=== PATIENT | female | born 1930 | race Hispanic/Latino ===

== ENCOUNTER 2016-12-01 16:10 | Inpatient (IN) | payer MEDICARE ==
[2016-12-01] MEDS ORDERED: D50W (25GM) IV PRN ×2 (16:48→18:41)
[2016-12-01] MEDS ORDERED: NOVOLOG SUB-Q SCH ×2 (16:51→21:00)
[2016-12-01] MEDS ORDERED: NACL 0.9% 1000 ML 1,000 ML IV SCH (17:00)
[2016-12-01 18:14] LABS: Alanine Aminotransferase 14 units/L (7-56); Albumin 4.2 g/dL (3.9-5); Alkaline Phosphatase 97 units/L (35-129); Anion Gap 18 mmol/L; BUN/Creatinine Ratio 31.42; Blood Urea Nitrogen 22 mg/dL (7-17); Calcium 10.7 mg/dL (8.4-10.2); Carbon Dioxide 24 mmol/L (22-30); Chloride 100.1 mmol/L (98-107); Glucose 222 mg/dL (65-100); Potassium 3.8 mmol/L (3.6-5.0); Sodium 138 mmol/L (137-145); Total Protein 8.4 g/dL (6.3-8.2)
[2016-12-01 18:22] LABS: Basophils % (Auto) 1.2 % (0.0-1.8); Eosinophils % (Auto) 9.4 % (0.0-4.3); Hematocrit 37.4 % (30.3-42.9); Hemoglobin 12.5 gm/dl (10.1-14.3); Mean Corpuscular HGB Conc 34 % (30-34); Mean Corpuscular Hemoglobin 29 pg (28-32); Mean Corpuscular Volume 88 fl (79-97); Platelet Count 252 K/mm3 (140-440); Red Blood Count 4.27 M/mm3 (3.65-5.03); Red Cell Distribution Width 13.5 % (13.2-15.2); White Blood Count 8.6 K/mm3 (4.5-11.0)
--- NOTE | 2016-12-01 19:27 | History and Physical Report ---
History of Present Illness Date of examination: 12/01/16 Date of admission: 12/01/16 18:40 Chief complaint: Seerely elevated Calcium level, constipation History of present illness: Pt is an 86 y/o lady with a history of DM, HTN, Hypercalcemia and osteoporosis on Alandronate, Ca+ with Vit D came in for a routine physical in my office on 11/29/16. Report of the lab studies showed Calcium level of 12.2. Total protein and Globulin were elevated with normal albumin level. Has constipation. Pt denies any chest pain shortness of breath, nausea vomiting or irrefgular hear beat. Pt was directly admitted for for evaluation and iv NS. Full H and P dictated and can be seen in the report section. Past History Past Medical History: hypertension, hyperlipidemia, other (osteoporosis) Past Surgical History: denies: No surgical history Social history: denies: smoking, alcohol abuse, prescription drug abuse, IV drug use Family history: denies: no significant family history Medications and Allergies Allergies Allergy/AdvReac Type Severity Reaction Status Date / Time codeine AdvReac Unknown Verified 12/01/16 16:19 lisinopril AdvReac Unknown Verified 12/01/16 16:19 Active Meds: Active Medications Dextrose (D50w (25gm)) 50 ml IV PRN PRN PRN Reason: Hypoglycemia Enoxaparin Sodium (Lovenox) 40 mg SUB-Q QDAY UYEN Sodium Chloride (Nacl 0.9% 1000 Ml) 1,000 mls @ 120 mls/hr IV DIRECT UYEN Insulin Aspart (Novolog) 0 units SUB-Q ACHS UYEN PRN Reason: Protocol Review of Systems Constitutional: weight loss, weight gain, no fever, no chills, no sweats Ears, nose, mouth and throat: other (hardness of heariong), no deferred, no ear pain, no ear discharge Cardiovascular: no chest pain, no orthopnea, no palpitations Respiratory: no cough, no cough with sputum, no excessive sputum, no hemoptysis Gastrointestinal: constipation, no abdominal pain, no nausea, no vomiting Integumentary: no rash, no pruritis Neurological: no head injury, no transient paralysis, no parathesias Psychiatric: no anxiety, no memory loss, no change in sleep habits, no sleep disturbances Endocrine: no cold intolerance, no heat intolerance, no polyphagia Exam - Constitutional Vitals: Temp Pulse Resp BP Pulse Ox 98.7 F 100 H 18 154/85 100 12/01/16 18:35 12/01/16 17:29 12/01/16 17:29 12/01/16 18:35 12/01/16 17:29 General appearance: Present: no acute distress, well-nourished - EENT Eyes: Present: PERRL ENT: hearing decreased - Neck Neck: Present: supple, normal ROM - Respiratory Respiratory effort: normal Respiratory: bilateral: CTA - Cardiovascular Heart Sounds: Present: S1 & S2. Absent: rub, click - Extremities Extremities: pulses symmetrical, No edema Peripheral Pulses: within normal limits - Abdominal General gastrointestinal: Present: soft, non-tender, non-distended, normal bowel sounds Female genitourinary: Present: normal - Integumentary Integumentary: Present: clear, warm, dry - Musculoskeletal Musculoskeletal: gait normal, strength equal bilaterally - Psychiatric Psychiatric: appropriate mood/affect, intact judgment & insight - Neurologic Neurologic: CNII-XII intact, moves all extremities Results - Labs CBC & Chem 7: 12/01/16 17:44 12/01/16 17:44 Labs: Abnormal lab results 12/01/16 12/01/16 Range/Units 17:44 17:44 [place] % (Auto) 12.7 H (0.0-7.3) % Eos % (Auto) 9.4 H (0.0-4.3) % [place] # 1.1 H (0.0-0.8) K/mm3 Eos # 0.8 H (0.0-0.4) K/mm3 BUN 22 H (7-17) mg/dL Glucose 222 H (65-100) mg/dL Calcium 10.7 H (8.4-10.2) mg/dL Total Protein 8.4 H (6.3-8.2) g/dL Assessment and Plan # Severe Hyperclacemia: PTH, Phosphorus, SPEP and UPEP, EKG, IV NS, trend Ca + level # Diabeted Mellitus Aic, SSI, Consistent carbohydrate diet # Hypertension Commenc home oral antihypertensive meds # H/o Ostoporosis Will hold Ca+ with Vit D and alendronate. # DVT PPx with lovenox and GI with protonix
[2016-12-01 19:56] LABS: Basophils % (Auto) 1.2 % (0.0-1.8); Eosinophils % (Auto) 8.8 % (0.0-4.3); Hematocrit 38.8 % (30.3-42.9); Hemoglobin 12.7 gm/dl (10.1-14.3); Mean Corpuscular HGB Conc 33 % (30-34); Mean Corpuscular Hemoglobin 29 pg (28-32); Mean Corpuscular Volume 88 fl (79-97); Platelet Count 251 K/mm3 (140-440); Red Blood Count 4.38 M/mm3 (3.65-5.03); Red Cell Distribution Width 13.3 % (13.2-15.2); White Blood Count 7.9 K/mm3 (4.5-11.0)
[2016-12-01] MEDS ORDERED: LOVENOX SUB-Q SCH ×2 (20:00→22:00)
[2016-12-01 20:07] LABS: Magnesium 1.6 mg/dL (1.7-2.3); Phosphorous 2.7 mg/dL (2.5-4.5)
[2016-12-01 20:10] LABS: Alanine Aminotransferase 14 units/L (7-56); Albumin 4.5 g/dL (3.9-5); Albumin/Globulin Ratio 1.2 %; Alkaline Phosphatase 98 units/L (35-129); Anion Gap 17 mmol/L; Blood Urea Nitrogen 21 mg/dL (7-17); Calcium 11.2 mg/dL (8.4-10.2); Carbon Dioxide 27 mmol/L (22-30); Chloride 99.1 mmol/L (98-107); Glucose 172 mg/dL (65-100); Potassium 4.3 mmol/L (3.6-5.0); Sodium 139 mmol/L (137-145); Total Protein 8.4 g/dL (6.3-8.2)
--- NOTE | 2016-12-01 20:28 | History and Physical Report ---
CHIEF COMPLAINT: 1. Severe hypercalcemia of 12.2. 2. Diabetes mellitus type 2. 3. Osteoporosis. HISTORY OF PRESENT ILLNESS: The patient is an 86-year-old lady who has a history of diabetes mellitus, osteoporosis, hyperlipidemia and hypertension, who came in about a week ago for a routine physical examination. Laboratory studies showed that the patient had a calcium level of 12.2. Denies any abdominal pain, no nausea, no vomiting. Denies any palpitations. The patient has a history of diabetes mellitus with an A1c of 6.4. Blood sugar today was 165. Of note, these are laboratory studies were done on 11/29/2016, also showed the patient in addition to have a calcium level of 12.3, total protein level of 8.7, hemoglobin level of 4.2, and albumin level of 4.5. Creatinine was 0.90 and BUN was 25. The patient was therefore directly admitted for IV normal saline because of the elevated calcium level. PAST MEDICAL HISTORY: Remarkable for hypertension, diabetes mellitus, hyperlipidemia, hypercalcemia, hardness of hearing. MEDICATIONS: Included alendronate 70 mg 1 weekly, amlodipine 10 mg daily, aspirin 81 mg daily, atorvastatin 10 mg daily, calcium with vitamin D 600 mg 1 p.o. t.i.d., glimepiride 4 mg b.i.d., hydrochlorothiazide 12.5 mg daily, losartan 50 mg daily, metformin 1000 mg b.i.d. ALLERGIES: TO CODEINE AND LISINOPRIL. LISINOPRIL CAUSES DRY COUGH. CODEINE CAUSES HER ALTERATION IN MENTAL STATUS. SOCIAL HISTORY: The patient lives alone. Denies any tobacco or alcohol use. No illicit drug use. FAMILY HISTORY: The patient denies any family history of hypercalcemia or multiple myeloma. REVIEW OF SYSTEMS: GENERAL: The patient is sitting quietly. HEENT: Normocephalic, atraumatic. EYES: No blurred vision. EARS: She has hearing deficit. NOSE: No rhinorrhea, no otorrhea. MOUTH: No postnasal drainage. NECK: No enlarged glands. HEART: Denies any chest pain. No orthopnea or paroxysmal nocturnal dyspnea. LUNGS: Denies any cough, no wheezing, no pleuritic chest pain. GASTROINTESTINAL: No abdominal pain, no nausea, no vomiting. No diarrhea. Denies any hematemesis or melena. GENITOURINARY: No urinary frequency or urgency. Denies any dysuria. SKIN: No rashes. No hyperpigmentation spots. ENDOCRINE: Denies any lid lag. No heat or cold intolerance. IMMUNOLOGICAL: Denies any multiple septic spots on the skin. HEMATOLOGICAL: No subcutaneous hemorrhage or petechia. LYMPHATIC: No generalized lymphadenopathy. PHYSICAL EXAMINATION: VITAL SIGNS: Blood pressure was 120/70, pulse was 80, respirations 14, weight is 109, height is 65 inches. HEENT: Normocephalic, atraumatic. Eyes: Pupils are equal, round and reactive to light. Extraocular muscles are intact. Nose: No enlarged turbinates. No septal deviation. THROAT: No postnasal drainage. EARS: She has a hearing deficit. HEART: Regular rate and rhythm, S1, S2. No rubs, murmurs, or gallop. CHEST: Clear to auscultation bilaterally. No wheezing, rales or rhonchi. ABDOMEN: Soft, nontender. Bowel sounds are present. EXTREMITIES: No edema, no cyanosis, no clubbing. NEUROLOGICAL: The patient is alert and oriented x 3. No focal sensory or motor deficit noted besides hardness of hearing. SKIN: No rashes. No hyperpigmentation spots ENDOCRINE: No lid lag. No goiter. No exophthalmos. HEMATOLOGICAL: No subcutaneous hemorrhages or petechia. IMMUNOLOGICAL: No multiple septic spots on the skin. LYMPHATIC: No generalized lymphadenopathy. MUSCULOSKELETAL: No joint pain, no joint swelling; however, has a kyphosis. LABORATORY DATA: Laboratory report on 11/29/2016 shows WBC was 7.2, hemoglobin was 13.1, hematocrit 41.0, platelets 286. Glucose 123. Sodium was 141, potassium level 4.7, chloride is 104, carbon dioxide 28, anion gap is 13, BUN is 25, creatinine 0.9, calcium is 12.2, total protein is 8.7, albumin is 4.5, globulin is 4.2, total bilirubin is 0.5, alkaline phosphatase 101, ALT is 21, 1, AST 31. Total cholesterol is 113, LDL is 55.4. HDL is 42. Triglycerides 78. TSH is 2.9, which is normal. ASSESSMENT: 1. Hypercalcemia with calcium level of 12.2. 2. Hyperproteinemia with total protein of 8.7, normal is 5.7 to 8.2. Globulin level of 4.2 with, normal is 1.8 to 4. 3. Diabetes mellitus type 2. 4. Osteoporosis. PLAN: We will admit the patient to medical floor. We will obtain UPEP and SPEP. PTH. Phosphorus level, magnesium levels will be ordered. TSH has been normal and therefore, we will not repeat that. Commenced the patient on normal saline at 125 mL/ hour. Repeat her BNP. The patient did not endorse any current weight loss. We will follow the results of the SPEP and UPEP for any evidence of multiple myeloma. The patient will be placed on consistent carbohydrate diet. Accu-Chek a.c. and bedtime. We will hold calcium with vitamin D for osteoporosis as well as alendronate. We will also hold her hydrochlorothiazide that may have been responsible for elevated calcium level. DVT prophylaxis is going to be with Lovenox and GI prophylaxis is going to be with Protonix. JOB# [id number] OO/NTS
[2016-12-01] MEDS: PROTONIX IV SCH (22:40)
[2016-12-01] MEDS: NACL 0.9% 1000 ML 1,000 ML IV SCH (22:41)
[2016-12-01] MEDS: NOVOLOG SUB-Q SCH (22:51)
[2016-12-01] MEDS: NORVASC PO SCH (22:57)
--- NOTE | 2016-12-02 00:27 | History and Physical Report ---
CHIEF COMPLAINT: 1. Elevated calcium level. 2. Diabetes mellitus type 2. HISTORY OF PRESENT ILLNESS: The patient is an 86-year-old lady who has a history of diabetes mellitus, hypertension, hardness of hearing, hyperlipidemia and hypercalcemia, came in for a physical examination about a week ago. Laboratory results came back with a calcium level of 12.2. Total protein was 8.7 and globulin was 4.2. The patient denies any chest pain. No shortness of breath. No orthopnea or paroxysmal nocturnal dyspnea. She had elevated calcium level about a year ago of 10.8. The patient had a history of osteoporosis for which she is on alendronate and calcium with vitamin D. Based on this elevated calcium level of 12.2, the patient was admitted directly to the hospital for IV normal saline and for a workup. The patient denies any diarrheas. No irregular heartbeats. Has a history of elevated TSH in the past. However, the patient has no history of constipation or low pulse rate. PAST MEDICAL HISTORY: Remarkable for diabetes mellitus type 2, hyperlipidemia, hypercalcemia, loss of hearing, osteoporosis and elevated TSH level. MEDICATIONS: Included: 1. Alendronate 70 mg 1 q. weekly. 2. Amlodipine 10 mg daily. 3. Aspirin 81 mg daily. 4. Atorvastatin 10 mg daily. 5. Calcium with vitamin D 600 mg 1 p.o. t.i.d. 6. Glimepiride 4 mg b.i.d. 7. Hydrochlorothiazide 12.5 mg daily. 8. Losartan 50 mg daily. 9. Metformin 1000 mg b.i.d. ALLERGIES: CODEINE. DICTATION ENDS HERE. JOB# [id number] OO/NTS
[2016-12-02 05:02] LABS: Alanine Aminotransferase 14 units/L (7-56); Albumin 3.7 g/dL (3.9-5); Albumin/Globulin Ratio 1.1 %; Alkaline Phosphatase 79 units/L (35-129); Anion Gap 16 mmol/L; Blood Urea Nitrogen 15 mg/dL (7-17); Calcium 9.9 mg/dL (8.4-10.2); Carbon Dioxide 25 mmol/L (22-30); Chloride 105.5 mmol/L (98-107); Glucose 141 mg/dL (65-100); Sodium 143 mmol/L (137-145); Total Protein 7.2 g/dL (6.3-8.2)
[2016-12-02 05:23] LABS: Potassium 3.4 mmol/L (3.6-5.0)
[2016-12-02] MEDS: NOVOLOG SUB-Q SCH ×4 (08:20→22:48)
[2016-12-02] MEDS: NORVASC PO SCH (09:28)
[2016-12-02] MEDS: CALTRATE PLUS PO SCH ×3 (09:28→20:29)
[2016-12-02] MEDS: PROTONIX IV SCH (09:29)
[2016-12-02] MEDS: HCTZ PO SCH (09:29)
--- NOTE | 2016-12-02 09:47 | Cat Scan Report ---
CT CHEST WITHOUT CONTRAST: 12/01/16 18:40:00 CLINICAL: Severe hypercalcemia and weight loss. TECHNIQUE: Volumetric acquisition and 1.25 mm scan reconstructions without contrast. FINDINGS: Bilateral apical pleural scarring and bilateral upper lobe calcified pleural plaques extending into the apices. A few tiny calcified granulomata and a few small noncalcified lung nodules in the upper lobes and the left lower lobe. The largest is in the left lower lobe and measures 4 mm. No pleural effusion. No hilar lymphadenopathy. However several bilateral calcified hilar lymph nodes and mediastinal lymph nodes. There also numerous noncalcified mediastinal lymph nodes. The largest is a left paratracheal lymph node measuring 1.6 x 1.27 m. No supraclavicular or axillary lymphadenopathy. Small bilateral axillary lymph nodes. The left thyroid is larger than the right and there is suggestion of a few tiny thyroid nodules and a three mm left thyroid calcification. The lungs are hyperexpanded and hyperlucent. Mild bilateral lower lobe scarring. Normal heart. Moderate calcification of the thoracic aorta. Normal trachea and esophagus. Bone windows demonstrate a moderate anterior wedge compression fracture of T5 appears to be chronic. IMPRESSION: 1. Mediastinal lymphadenopathy. 2. Old granulomatous disease with calcified mediastinal lymph nodes and a few tiny calcified lung granulomata. 3. Several small noncalcified lung nodules with largest measuring 4 mm in the left lower lobe. 4. Chronic T5 anterior wedge compression fracture.
--- NOTE | 2016-12-02 10:27 | Cat Scan Report ---
CT ABDOMEN AND PELVIS WITHOUT CONTRAST: 12/01/16 18:40:00 CLINICAL:Severe hypercalcemia and weight loss area TECHNIQUE: Volumetric acquisition and 1.25 millimeter scan reconstructions from the lung bases through the iliac crest. The study was performed without oral contrast. FINDINGS: Abdomen:The quality of the examination is degraded by motion. Normal liver and bile ducts. The gallbladder is partially contracted with no stones. Normal stomach, duodenum and spleen. The pancreas is small but otherwise normal. A few small celiac and jerry hepatis lymph nodes. The largest is a portacaval lymph node measuring 1.2 x 0.9 cm. Calcification of the abdominal aorta. The inferior vena cava is normal. No ascites and no pneumoperitoneum. The small bowel and colon are normal. There is a large volume of stool throughout the colon. The appendix is normal. Normal adrenal glands and kidneys. The renal systems and ureters are nondilated. Pelvis: Distended urinary bladder but otherwise normal urinary bladder. Normal small uterus. Ovaries are not identified. No adnexal mass or free fluid. Redundant sigmoid colon with mild diverticulosis. No signs of diverticulitis. IMPRESSION: 1. Mild diverticulosis but no diverticulitis. 2. Mildly prominent celiac and jerry hepatis lymph nodes. No lymphadenopathy.
[2016-12-02] MEDS: NACL 0.9% 1000 ML 1,000 ML IV SCH (11:03)
--- NOTE | 2016-12-02 12:58 | Progress Note ---
Assessment and Plan - Patient Problems (1) Hypercalcemia Current Visit: Yes Status: Acute Plan to address problem: Continue IV hydration with normal saline and monitor potassium level. Awaiting serum protein electrophoresis and urine electrophoresis, results still pending (2) Hypokalemia Current Visit: Yes Status: Acute Plan to address problem: We will replace potassium and continue to monitor (3) Type 2 diabetes mellitus Current Visit: Yes Status: Acute Qualifiers: Diabetes mellitus complication status: without complication Diabetes mellitus complication detail: D Diabetic retinopathy severity: D Proliferative retinopathy type: P Diabetes mellitus macular edema: D Diabetes mellitus senior care insulin use: without senior care use Laterality: L Chronic kidney disease stage: C Qualified Code(s): E11.9 - Type 2 diabetes mellitus without complications Plan to address problem: Place patient on sliding scale regular insulin for coverage of over 200. Patient previously stable on oral diabetes medication will restart both metformin and glimepiride at this time and continue to monitor blood for blood sugar over 200 (4) Degenerative joint disease involving multiple joints on both sides of body Current Visit: Yes Status: Acute Plan to address problem: Patient currently asymptomatic with continue to observe (5) Hypomagnesemia Current Visit: Yes Status: Acute Plan to address problem: Will order for replacement for magnesium and continue to monitor Subjective Date of service: 12/02/16 Principal diagnosis: hypercalcemia Interval history: Covering for Dr. Dr. Alexander. Patient seen and examined chart reviewed. Patient sitting up in bed denied any complaint at this time and inquiring about ongoing evaluation. Patient denied chest pain no shortness of breath no fever reported and denied any pain at this time. Objective - Exam Narrative Exam: GENERAL: Elderly female, sitting up in bed in no acute distress not pale no jaundice pupils are equal and reactive to light bilaterally HEENT: Normocephalic, pharynx is clear oral mucosal moist no oral lesions, NECK: [No JVD, no thyroid enlargement and no lymphadenopathy.] CHEST/LUNGS: [Good air exchange bilaterally, no wheeze, no rales and no rhonchi. ] [No chest wall tenderness, percussion is normal, symmetrical chest wall.] HEART/CARDIOVASCULAR: Tachycardia. Second heart sounds only does no audible murmur ABDOMEN: Abdomen is soft is nondistended, liver spleen and kidneys are not enlarged, no palpable masses, no surgical scars in the abdomen nontender to palpation bowel sounds active. No guarding or rebound tenderness SKIN: Skin is warm and dry, no skin rash noted, NEURO: Patient is awake alert oriented 3, speech is normal with no dysarthria, moving all 4 extremities, power is 5/5 in all the extremity EXTREMITIES: No pedal edema good peripheral pulses, no varicosities. Lower extremity joints showing degenerative changes with no joint effusion . - Constitutional Vitals: Vital Signs - 12hr 12/02/16 12/02/16 12/02/16 03:05 09:28 10:00 Pulse Rate 81 84 132 H Blood Pressure 158/70 - Labs CBC & Chem 7: 12/01/16 19:32 12/02/16 04:12 Labs: Abnormal lab results 12/01/16 12/01/16 12/01/16 Range/Units 17:44 17:44 19:32 [place] % (Auto) 12.7 H 12.2 H (0.0-7.3) % Eos % (Auto) 9.4 H 8.8 H (0.0-4.3) % [place] # 1.1 H 1.0 H (0.0-0.8) K/mm3 Eos # 0.8 H 0.7 H (0.0-0.4) K/mm3 Potassium (3.6-5.0) mmol/L BUN 22 H (7-17) mg/dL Creatinine (0.7-1.2) mg/dL Glucose 222 H (65-100) mg/dL POC Glucose (70-105) Calcium 10.7 H (8.4-10.2) mg/dL Magnesium (1.7-2.3) mg/dL Total Protein 8.4 H (6.3-8.2) g/dL Albumin (3.9-5) g/dL 12/01/16 12/01/16 12/01/16 Range/Units 19:32 19:32 19:44 [place] % (Auto) (0.0-7.3) % Eos % (Auto) (0.0-4.3) % [place] # (0.0-0.8) K/mm3 Eos # (0.0-0.4) K/mm3 Potassium (3.6-5.0) mmol/L BUN 21 H (7-17) mg/dL Creatinine 0.6 L (0.7-1.2) mg/dL Glucose 172 H (65-100) mg/dL POC Glucose 164 H (70-105) Calcium 11.2 H (8.4-10.2) mg/dL Magnesium 1.60 L (1.7-2.3) mg/dL Total Protein 8.4 H (6.3-8.2) g/dL Albumin (3.9-5) g/dL 12/01/16 12/02/16 12/02/16 Range/Units 21:45 04:12 08:14 [place] % (Auto) (0.0-7.3) % Eos % (Auto) (0.0-4.3) % [place] # (0.0-0.8) K/mm3 Eos # (0.0-0.4) K/mm3 Potassium 3.4 L D (3.6-5.0) mmol/L BUN (7-17) mg/dL Creatinine 0.5 L (0.7-1.2) mg/dL Glucose 141 H (65-100) mg/dL POC Glucose 147 H 148 H (70-105) Calcium (8.4-10.2) mg/dL Magnesium (1.7-2.3) mg/dL Total Protein (6.3-8.2) g/dL Albumin 3.7 L (3.9-5) g/dL 12/02/16 Range/Units 12:08 [place] % (Auto) (0.0-7.3) % Eos % (Auto) (0.0-4.3) % [place] # (0.0-0.8) K/mm3 Eos # (0.0-0.4) K/mm3 Potassium (3.6-5.0) mmol/L BUN (7-17) mg/dL Creatinine (0.7-1.2) mg/dL Glucose (65-100) mg/dL POC Glucose 243 H (70-105) Calcium (8.4-10.2) mg/dL Magnesium (1.7-2.3) mg/dL Total Protein (6.3-8.2) g/dL Albumin (3.9-5) g/dL
[2016-12-02] MEDS ORDERED: K-DUR PO ONE (14:00)
[2016-12-02] MEDS ORDERED: HCTZ PO SCH (14:00)
[2016-12-02] MEDS: MAG-OX PO SCH (14:55)
[2016-12-02] MEDS: BABY ASPIRIN PO SCH (14:55)
[2016-12-02] MEDS ORDERED: GLIMEPIRIDE 5 MG PO SCH (22:00)
[2016-12-02] MEDS: AMARYL PO SCH (22:19)
[2016-12-02] MEDS: GLUCOPHAGE PO SCH (22:20)
[2016-12-02] MEDS: LOVENOX SUB-Q SCH (22:20)
[2016-12-03 05:00] LABS: Anion Gap 19 mmol/L; BUN/Creatinine Ratio 31.66; Blood Urea Nitrogen 19 mg/dL (7-17); Carbon Dioxide 22 mmol/L (22-30); Chloride 103.9 mmol/L (98-107); Glucose 114 mg/dL (65-100); Sodium 141 mmol/L (137-145)
[2016-12-03] MEDS: NACL 0.9% 1000 ML 1,000 ML IV SCH ×2 (07:08→16:29)
[2016-12-03] MEDS: NOVOLOG SUB-Q SCH ×3 (08:30→16:26)
[2016-12-03] MEDS: CALTRATE PLUS PO SCH ×3 (08:45→21:15)
[2016-12-03] MEDS: NORVASC PO SCH (09:34)
[2016-12-03] MEDS: AMARYL PO SCH ×2 (09:34→21:14)
[2016-12-03] MEDS: PROTONIX PO SCH (09:34)
[2016-12-03] MEDS: MAG-OX PO SCH (09:34)
[2016-12-03] MEDS: BABY ASPIRIN PO SCH (09:34)
[2016-12-03] MEDS: HCTZ PO SCH (09:35)
[2016-12-03] MEDS: GLUCOPHAGE PO SCH ×2 (09:36→21:14)
[2016-12-03] MEDS ORDERED: NON-FORMULARY (Amlodipine 10 MG) PO SCH (10:00)
[2016-12-03] MEDS ORDERED: NON-FORMULARY (Atorvastatin 10 MG) PO SCH (10:00)
--- NOTE | 2016-12-03 11:07 | Progress Note ---
Assessment and Plan - Patient Problems (1) Hypercalcemia Current Visit: Yes Status: Acute Plan to address problem: Continue IV hydration with normal saline and monitor potassium level. Awaiting serum protein electrophoresis and urine electrophoresis, results still pending (2) Hypokalemia Current Visit: Yes Status: Acute Plan to address problem: We will replace potassium and continue to monitor (3) Type 2 diabetes mellitus Current Visit: Yes Status: Acute Qualifiers: Diabetes mellitus complication status: without complication Diabetes mellitus complication detail: D Diabetic retinopathy severity: D Proliferative retinopathy type: P Diabetes mellitus macular edema: D Diabetes mellitus half-way insulin use: without intermodal dispatcher use Laterality: L Chronic kidney disease stage: C Qualified Code(s): E11.9 - Type 2 diabetes mellitus without complications Plan to address problem: Place patient on sliding scale regular insulin for coverage of over 200. Patient previously stable on oral diabetes medication will restart both metformin and glimepiride at this time and continue to monitor blood for blood sugar over 200 (4) Degenerative joint disease involving multiple joints on both sides of body Current Visit: Yes Status: Acute Plan to address problem: Patient currently asymptomatic with continue to observe (5) Hypomagnesemia Current Visit: Yes Status: Acute Plan to address problem: Will order for replacement for magnesium and continue to monitor Subjective Date of service: 12/03/16 Principal diagnosis: hypercalcemia Interval history: Covering Dr. Dr. Alexander. Patient seen and examined chart reviewed. Patient denied any new complaints no chest pain or shortness of breath and no fever reported. Vitals stable Objective - Exam Narrative Exam: GENERAL: Elderly female, sitting up in bed in no acute distress not pale no jaundice pupils are equal and reactive to light bilaterally HEENT: Normocephalic, pharynx is clear oral mucosal moist no oral lesions, NECK: [No JVD, no thyroid enlargement and no lymphadenopathy.] CHEST/LUNGS: [Good air exchange bilaterally, no wheeze, no rales and no rhonchi. ] [No chest wall tenderness, percussion is normal, symmetrical chest wall.] HEART/CARDIOVASCULAR: Tachycardia. Second heart sounds only does no audible murmur ABDOMEN: Abdomen is soft is nondistended, liver spleen and kidneys are not enlarged, no palpable masses, no surgical scars in the abdomen nontender to palpation bowel sounds active. No guarding or rebound tenderness SKIN: Skin is warm and dry, no skin rash noted, NEURO: Patient is awake alert oriented 3, speech is normal with no dysarthria, moving all 4 extremities, power is 5/5 in all the extremity EXTREMITIES: No pedal edema good peripheral pulses, no varicosities. Lower extremity joints showing degenerative changes with no joint effusion . - Constitutional Vitals: Vital Signs - 12hr 12/02/16 12/03/16 12/03/16 23:50 06:40 08:00 Temperature 97.2 F L 98.2 F 98.1 F Pulse Rate Pulse Rate [ 95 H 110 H 88 From Monitor] Respiratory 18 18 16 Rate Blood Pressure Blood Pressure 156/71 103/70 135/72 [Right Arm] O2 Sat by Pulse 95 Oximetry 12/03/16 09:34 Temperature Pulse Rate 88 Pulse Rate [ From Monitor] Respiratory Rate Blood Pressure 135/72 Blood Pressure [Right Arm] O2 Sat by Pulse Oximetry - Labs CBC & Chem 7: 12/01/16 19:32 12/03/16 04:11 Labs: Abnormal lab results 12/02/16 12/02/16 12/02/16 Range/Units 08:14 12:08 16:07 BUN (7-17) mg/dL Creatinine (0.7-1.2) mg/dL Glucose (65-100) mg/dL POC Glucose 148 H 243 H 158 H (70-105) 12/02/16 12/03/16 12/03/16 Range/Units 22:05 04:11 07:24 BUN 19 H (7-17) mg/dL Creatinine 0.6 L (0.7-1.2) mg/dL Glucose 114 H (65-100) mg/dL POC Glucose 190 H 174 H (70-105)
[2016-12-03] MEDS: LOVENOX SUB-Q SCH (21:14)
[2016-12-04] MEDS: NOVOLOG SUB-Q SCH ×3 (00:01→11:25)
[2016-12-04] MEDS: NACL 0.9% 1000 ML 1,000 ML IV SCH ×2 (00:06→09:37)
[2016-12-04] MEDS: BABY ASPIRIN PO SCH (09:15)
[2016-12-04] MEDS: CALTRATE PLUS PO SCH (09:15)
[2016-12-04] MEDS: MAG-OX PO SCH (09:15)
[2016-12-04] MEDS: PROTONIX PO SCH (09:16)
[2016-12-04] MEDS: NORVASC PO SCH (09:16)
[2016-12-04] MEDS: AMARYL PO SCH (09:16)
[2016-12-04] MEDS: HCTZ PO SCH (09:17)
[2016-12-04 09:18] VITALS: BP 149/73
[2016-12-04] MEDS: GLUCOPHAGE PO SCH (09:19)
--- NOTE | 2016-12-04 09:30 | Discharge Summary ---
Providers - Providers Date of Admission: 12/01/16 18:40 Date of discharge: 12/04/16 Attending physician: NOMAN NARVAEZ none Primary care physician: NOMAN NARVAEZ Hospitalization Reason for admission: hyperkalemia, constipation Pertinent studies: CT scan of the abdomen and pelvis was unremarkable for any acute event Procedures: Done Hospital course: Patient is an 86-year-old lady was a history or hypertension, diabetes mellitus , hypercalcemia, had visited my office for routine physical. Blood studies were done. Calcium level returned as 12.2. Patient has a history of osteoporosis for which she is on cars with vitamin D. Was admitted on commenced on normal saline and Lasix. CT scan of the chest abdomen and pelvis showed mediastinal lymphadenopathies. UPEP and SPEP were ordered. Results pending. Hypercalcemia improved to normal. Alendronate calcium with vitamin D were discontinued. Constipation improved. Patient is therefore been discharged today to follow primary care physician as well as to follow up with result of parathyroid paraprotein. Disposition: DISCHARGED TO HOME OR SELFCARE Core Measure Documentation - Palliative Care Palliative Care/ Comfort Measures: Not Applicable - Core Measures Any of the following diagnoses?: none Exam - Constitutional Vitals: Temp Pulse Resp BP Pulse Ox 98.6 F 98 H 20 149/73 95 12/04/16 04:00 12/04/16 09:16 12/04/16 04:00 12/04/16 09:16 12/03/16 08:00 General appearance: Present: no acute distress, well-nourished - EENT Eyes: Present: PERRL ENT: hearing intact, clear oral mucosa - Neck Neck: Present: supple, normal ROM - Respiratory Respiratory effort: normal Respiratory: bilateral: CTA - Cardiovascular Heart Sounds: Present: S1 & S2. Absent: rub, click - Extremities Extremities: pulses symmetrical, No edema Peripheral Pulses: within normal limits - Abdominal General gastrointestinal: Present: soft, non-tender, non-distended, normal bowel sounds - Integumentary Integumentary: Present: clear, warm, dry - Musculoskeletal Musculoskeletal: gait normal, strength equal bilaterally - Psychiatric Psychiatric: appropriate mood/affect, intact judgment & insight - Neurologic Neurologic: CNII-XII intact, moves all extremities Plan Activity: no driving until cleared by PCP, fall precautions Diet: diabetic Follow up with: NOMAN NARVAEZ MD [Primary Care Provider] - 7 Days Prescriptions: amLODIPine [Norvasc] 10 mg PO QDAY #30 tablet Aspirin BABY CHEW TAB 81 mg PO QDAY #30 AtorvaSTATin [Lipitor] 10 mg PO QHS #30 tablet Glimepiride [Amaryl] 4 mg PO Q12HR #60 tablet Metformin HCl 1,000 mg PO Q12HR #60
--- NOTE | 2016-12-04 13:41 | Admit Criteria Form ---
Admission Criteria Documentation: GENERAL ADMISSION CRITERIA (Place 'X' for any and all applicable criteria): Admission is indicated for ANY ONE of the following: [ ]I. Hemodynamic instability as indicated by ANY ONE of the following(1)(2) (3)(4)(5): [ ]a) Vital sign abnormality not readily corrected by appropriate treatment within 12 to 24 hours indicated by ANY ONE of the following: [ ]i) Hypotension [ ]ii) Symptomatic Tachycardia unresponsive to treatment (eg , analgesia, fluids, sedation as indicated) [ ]iii) Orthostatic vital sign changes unresponsive to treatment (eg, fluids) [ ]b) Vital sign abnormality that is severe indicated by ANY ONE of the following: [ ]i) Inadequate perfusion indicated by ANY ONE of the following: [ ]1) Lactic acidosis (greater than 2 mmol/L) [ ]2) New abnormal capillary refill (greater than 3 seconds) [ ]3) Other metabolic acidosis (arterial pH less than 7.35) not otherwise explained [ ]4) Reduced urine output [ ]5) Altered mental status [ ]6) Myocardial Ischemia [ ]v) Mean arterial pressure[A] less than 60 mm Hg [ ]vi) Mean arterial pressure[A] less than 70 mm Hg after 30 minutes of appropriate treatment (eg, fluid resuscitation) [ ]vii) IV inotropic or vasopressor medication required to maintain adequate blood pressure or perfusion [ ]viii) Sustained heart rate greater than 120 beats per minute in adult or child 6 years or older[B]] [ ]II. Hypertension requiring inpatient treatment as indicated by ANY ONE of the following(6)(7)(8): [ ]a) SBP greater than 220 mm Hg or DBP greater than 120 mm Hg despite treatment [ ]b) SBP greater than 140 mm Hg or DBP greater than 100 mm Hg with evidence of acute end organ damage as indicated by ANY ONE of the following: [ ]i) Encephalopathy [ ]ii) Acute renal failure as indicated by new onset of ANY ONE of the following(9)(10)(11)(12)(13): [ ]1) A 3-fold rise in serum creatinine from baseline [ ]2) Serum creatinine greater than 4 mg/dL ( 354 micromoles/L) with acute rise greater than 0.5 mg/dL (44.2 micromoles/L) [ ]3) Reduction of more than 75% in estimated glomerular filtration rate from baseline [ ]4) Estimated glomerular filtration rate less than 35 mL/min/1.73m2 (0.59 mL/sec/1.73m2) in child up to 18 years of age [ ]5) Cessation of urine output indicated by ALL of the following: [ ]A. Adequate volume status [ ]B. Inadequate urine output as indicated by ANY ONE of the following: [ ]a. Urine output less than 0.3 mL/kg/hr for 24 hours [ ]b. Anuria (urine output less than 0.1 mL/kg/hr) for 12 hours [ ]iii) Aortic dissection [ ]iv) Myocardial ischemia [ ]v) Left ventricular heart failure [ ]vi) Retinal hemorrhage [ ]vii) Other significant finding [ ]c) Hypertension in child requiring inpatient treatment as indicated by ALL of the following(14)(15)(16): [ ]i) Outpatient treatment not effective, not available, or not appropriate [ ]ii) SBP or DBP greater than 95th percentile for age [ ]iii) Evidence of acute end organ damage as indicated by ANY ONE of the following: [ ]1) Altered mental status [ ]2) Acute renal failure as indicated by new onset of ANY ONE of the following(9)(10)(11)(12)(13): [ ]A. A 3-fold rise in serum creatinine from baseline [ ]B. Serum creatinine greater than 4 mg/dL (354 micromoles/L) with acute rise greater than 0.5 mg/dL (44.2 micromoles/L) [ ]C. Reduction of more than 75% in estimated glomerular filtration rate from baseline [ ]D. Estimated glomerular filtration rate less than 35 mL/min/1.73m2 (0.59 mL/sec/1.73m2)in child up to 18 years of age [ ]E. Cessation of urine output indicated by ALL of the following: [ ]a. Adequate volume status [ ]b. Inadequate urine output as indicated by ANY ONE of the following: [ ]1) Urine output less than 0.3 mL/kg/hr for 24 hours [ ]2) Anuria (urine output less than 0.1 mL/kg/hr) for 12 hours [ ]3) Severe headache [ ]4) Visual disturbance [ ]5) Retinal hemorrhage [ ]6) Other significant finding [ ]III. Acute cardiac or peripheral ischemia as indicated by ANY ONE of the following: [ ]a) Acute coronary syndrome(17)(18) [ ]b) Acute peripheral ischemia (eg, pulseless, cool, mottled, or cyanotic extremity)(19) [ ]IV. Cardiac arrhythmias or findings of immediate concern indicated by ANY ONE of the following(20)(21): [ ]a) Heart rhythms that are inherently dangerous or unstable indicated by ANY ONE of the following(22)(23)(24): [ ]i) Resuscitated ventricular fibrillation or cardiac arrest [ ]ii) Ventricular escape rhythm [ ]iii) Sustained ventricular tachycardia (30 seconds or more of ventricular rhythm at greater than 100 beats per minute) [ ]iv) Nonsustained ventricular tachycardia and ANY ONE of the following: [ ]1) Suspected cardiac ischemia as cause or consequence of ventricular tachycardia [ ]2) In setting of acute myocarditis [ ]b) Unstable cardiac conduction defects indicated by ANY ONE of the following(24)(25)(26): [ ]i) Type II second-degree atrioventricular block [ ]ii) Third-degree atrioventricular block [ ]iii) New-onset left bundle branch block with suspected myocardial ischemia [ ]c) Any heart rhythm and ANY ONE of the following(22)(23)(27)(28)( 29): [ ] i) Continuous long-term ECG monitoring needed (eg, initiation of drug requiring monitoring for more than 24 hours) [ ] ii) Patient has automatic implanted cardioverter defibrillator that is repeatedly firing, malfunctioning, or in need of immediate adjustment of settings beyond the scope of ambulatory or observation care. [ ]d) Heart rhythms of concern due to ANY ONE of the following: [ ]i) Hypotension [ ]ii) Respiratory distress [ ]iii) Association with other significant symptoms (eg, bradycardia with syncope or ongoing dizziness, supraventricular tachycardia with chest pain) (27)(28) (30) [ ] V. Severe heart failure as indicated by ANY ONE of the following ( 31)(32): [ ]a) Respiratory distress [ ]b) Hypotension [ ]c) Anasarca (refractory to outpatient therapy) [ ]d) Cardiac arrhythmias of immediate concern [ ]e) Myocardial ischemia [ ]. Respiratory abnormalities, including ANY ONE of the following(33)(34) (35)(36): [ ]a) Respiratory rate greater than 30 breaths per minute unresponsive to treatment [A] [ ]b) New saturation of arterial oxygen less than 90% [ ]c) New partial pressure of carbon dioxide greater than 44 mm Hg ( 5.9 kPa) [ ]d) Supplemental oxygen or respiratory treatments needed that are new or not performable at other levels of care [ ]e) New-onset cyanosis [ ]f) Inability to protect airway [ ]g) Chronic lung disease with severe deterioration (not responsive to emergency and observation care treatment as appropriate) as indicated by ANY ONE of the following(34)(36 ): [ ]i) SaO2 5% below baseline in patient with chronic hypoxemia [ ]ii) New requirement for supplemental oxygen to keep SaO2 at baseline or acceptable level [ ]iii) Required supplemental oxygen performable only in acute inpatient setting [ ]iv) Severe airflow or ventilation abnormalities [ ]v) Previously mobile patient unable to walk between rooms [ ]vi Inability to eat or sleep due to dyspnea [ ]vii) Rapid rate of exacerbation onset [ ]viii) Altered mental status ]VII. Severe airflow or ventilation abnormalities (not responsive to emergency and observation care treatment as appropriate) as indicated by ANY ONE of the following(33)(34)(35)(37): [ ]a) PCO2 greater than 42 mm Hg (5.6 kPa) and pH less than 7.35 (new ) [ ]b) Documented PCO2 increased more than 5 mm Hg (0.7 kPa) from disease baseline [ ]c) Airflow measurements [B] less than 60% of previous best or predicted (eg, peak expiratory flow rate less than 300 L/minute) despite intensive emergent treatment [C] [ ]d) Required respiratory treatments that are performable only in acute inpatient setting [ ]VIII. Impending or actual respiratory arrest ( Also use Respiratory Failure GRG for severe respiratory disease and long-term mechanical ventilation patients) [ ]IX. Neurologic abnormalities, including ANY ONE of the following: [ ]a) New findings that suggest ANY ONE of the following: [ ]i) [employer] infection(38) [ ]ii) Cerebral bleeding, ischemia, or vasospasm(39)(40) [ ]iii) Increased intracranial pressure, hydrocephalus, or cerebral edema(41)(42)(43) [ ]iv) Spinal cord injury(44) [ ]b) Uncontrolled seizures(45) [ ]c) New-onset coma (eg, Bladen coma scale score less than 9) or unexplained abnormal mental status (eg, Bladen coma scale score less than 14) [D](41)(46)(47) [ ]X. New-onset severe neurologic findings requiring inpatient care; examples include(42)(48)(49): [ ]a) Papilledema [ ]b) Cerebral edema [ ]c) Mass effect on CT scan [ ]XI. Suspected acute intra-abdominal process with peritoneal signs, abdominal mass, or similar findings (50)(51)(52) [ ]XII. Severe physiologic disorder remaining after emergency or observation level care (as appropriate) as indicated by ANY ONE of the following (53): [ ]a) Significant dehydration [ ]b) Diabetic ketoacidosis [ ]c) Hyperglycemic hyperosmolar state (eg, osmolality greater than 320 mOsm/kg (mmol/kg) [ ]d) Hypoglycemia [ ]e) Other (new) acid-base disorder with pH less than 7.35 or greater than 7.5(54) [ ]f) Thyroid storm (55) [ ]g) Myxedema coma (55) [ ]XIII. Abdominal abnormalities with ANY ONE of the following(56)(57): [ ]a) Absent bowel sounds with complete ileus [ ]b) Signs of intestinal obstruction or peritonitis [E] [ ]c) Nausea and vomiting that cannot be controlled with outpatient or observation care [ ]XIV. Acute renal failure as indicated by new onset of ANY ONE of the following(9)(10)(11)(12)(13): [ ]a) A 3-fold rise in serum creatinine from baseline [ ]b) Serum creatinine greater than 4 mg/dL (354 micromoles/L) with acute rise greater than 0.5 mg/dL (44.2 micromoles/L) [ ]c) Reduction of more than 75% in estimated glomerular filtration rate from baseline [ ]d) Estimated glomerular filtration rate less than 35 mL/min/ 1.73m2 (0.59 mL/sec/1.73m2) in child up to 18 years of age [ ]e) Cessation of urine output indicated by ALL of the following: [ ]i) Adequate volume status [ ]ii) Inadequate urine output as indicated by ANY ONE of the following: [ ]1) Urine output less than 0.3 mL/kg/hr for 24 hours [ ]2) Anuria (urine output less than 0.1 mL/kg/hr) for 12 hours [ ]XV. Significant uremic complications as indicated by ANY ONE of the following(58)(59)(60): [ ]a) Outpatient therapy is ineffective or not feasible for ANY ONE of the following: [ ]i) Severe heart failure [ ]ii) Severehypertension [ ]iii) Pleural effusion [ ]iv) Pericarditis or pericardial effusion [ ]b) Cardiac arrhythmias of immediate concern [ ]c) Intractable nausea or vomiting [ ]d) Recurrent seizures [ ]e) Encephalopathy [ ]f) Bleeding abnormalities (eg, platelet dysfunction) with active (eg, gastrointestinal) bleeding [ ]g) Dialysis indicated before long-term access or ambulatory arrangements can be made [ ]h) Significant metabolic or electrolyte abnormalities (eg, severe acidosis or hyperkalemia) [ ]XVI. High fever or other high-risk infection situation as indicated by ANY ONE of the following(61)(62)(63)(64): [ ]a) Outpatient and observation care antimicrobial treatment unavailable, not effective, or not appropriate [ ]b) Documented bacteremia [ ]c) Temperature greater than 40.5 degrees C (104.9 degrees F) ( oral) [ ]d) Temperature greater than 39.5 degrees C (103.1 degrees F) ( oral) or less than 36 degrees C (96.8 degrees F) (rectal) that does not respond to e treatment and observation care [ ] XVII. Temperature less than 95 degrees F (35 degrees C)(rectal)(65) [ ] XVIII. Severe nutritional abnormalities as indicated by ALL of the following (66)(67): [ ]a) Inability to tolerate or establish sufficient oral or other enteral nutrition in outpatient setting [ ]b) Parenteral nutrition regimen need that must be implemented on inpatient basis [ ] XIX. Severe electrolyte abnormalities indicated by ALL of the following(68) (69)(70): [ ]a) Electrolytes and associated findings are not as expected for patient baseline or acceptable treatment effects. [ ]b) Severe abnormalities indicated by ANY ONE of the following: [ ]i) Sodium less than 130 mEq/L (mmol/L) (new) [ ]ii)Sodium less than 135 mEq/L (mmol/L) with ANY ONE of the following: [ ]1) Uncorrectable (to near normal or chronic baseline) after trial of outpatient and emergency treatment [ ]2) Altered mental status [ ]3) Seizures [ ]4) Severe medical etiology requiring inpatient management (eg, heart failure, hypovolemia) [ ]iii) Sodium greater than 155 mEq/L (mmol/L) [ ]iv) Sodium greater than 150 mEq/L (mmol/L) with ANY ONE of the following: [ ]1) Uncorrectable (to near normal or chronic baseline) with outpatient and emergency treatment [ ]2) Altered mental status [ ]3) Seizures [ ]4) Severe medical etiology (eg, hypovolemia, diabetes insipidus) [ ]v) Potassium less than 2.5 mEq/L (mmol/L) despite outpatient and emergency treatment [ ]vi) Potassium less than 3 mEq/L (mmol/L) with ANY ONE of the following: [ ]1) Weakness [ ]2) Cardiac abnormality (eg, arrhythmia, conduction disturbance) [ ]3) Cardiac ischemia [ ]4) Ileus [ ]5) Ongoing medical cause requiring inpatient management (eg, acute renal wasting or SIADH) [ ]6) Other severe symptoms [ ]vii) Potassium greater than 6.5 mEq/L (mmol/L) [ ]viii) Potassium greater than 5 mEq/L (mmol/L) with ANY ONE of the following: [ ]1) Uncorrectable (to near normal or chronic baseline) with outpatient and emergency treatment [ ]2) Severe ECG findings [F] [ ]3) Acute worsening of renal failure (creatinine greater than 2.5 mg/dL (221 micromoles/L) or significant elevation for age and size) [ ]4) Severe weakness [ ]5) Severe medical etiology (eg, hemolysis, infection, drug overdose) [ ]ix) Calcium less than 7 mg/dL (1.75 mmol/L) despite outpatient and emergency treatment (72) [ ]x) Calcium less than 8 mg/dL (2 mmol/L) with significant symptoms or findings; examples include(72): [ ]1) Altered mental status [ ]2) Muscle spasms [ ]3) Seizures [ ]4) Breathing difficulty [ ]5) Cardiac abnormality (eg, arrhythmia or conduction disturbance) [ ]xi) Calcium greater than 14 mg/dL (3.5 mmol/L)(72) [X]xii) Calcium greater than 12 mg/dL (3 mmol/L) with ANY ONE of the following(72): [X]1) Uncorrectable (to near normal or chronic baseline) with outpatient and emergency treatment [ ]2) Significant dehydration or hypovolemia as indicated by ALL of the following(70)(73)(74): [ ]A. Not resolved with initial treatments [ ]B. Clinically significant dehydration as indicated by ANY ONE of the following: [ ]a. Vomiting refractory to outpatient treatment (ie, precluding oral rehydration) [ ]b. Inability to drink [ ]c. Hypernatremia or other electrolyte abnormality unable to be corrected with outpatient and emergency treatment [ ]d. Failure to remain hydrated with outpatient therapy [ ]e. Reduced urine output [ ]f. Hypotension [ ]g. Serious cause for dehydration requiring acute hospitalization (eg, bowel obstruction, increased intracranial pressure, infectious cause) [ ]h. Child with ANY ONE of the following(75): [ ]1) Severe abdominal tenderness [ ]2) Adequate care not available at home [ ]3) Severe dehydration ( greater than 9% loss of body weight) [ ]4) Significant symptoms or findings; examples include: [ ]A. Altered mental status [ ]B. Cardiac abnormality (eg, arrhythmia, conduction disturbance) [ ]C. Malignant etiology requiring inpatient treatment [ ]xiii) Phosphorus less than 1 mg/dL (0.32 mmol/L) [ ]xiv) Phosphorus less than 1.5 mg/dL (0.48 mmol/L) with ANY ONE of the following: [ ]1) Patient unresponsive to outpatient and emergency treatment [ ]2) Significant symptoms or findings; examples include: [ ]A. Weakness [ ]B. Altered mental status [ ]C. Breathing difficulty [ ]D. Seizures [ ]E. Rhabdomyolysis [ ]xv) Phosphorus greater than 10 mg/dL (3.2 mmol/L) [ ]xvi) Phosphorus greater than 4.5 mg/dL (1.45 mmol/L) (new) with ANY ONE of the following: [ ]1) Severe medical etiology (eg, crush injury, acute renal failure) [ ]2) Associated hypocalcemia with significant findings; examples include: [ ]A. Neurologic symptoms [ ]B. Altered mental status [ ]C. Muscle spasms [ ]D. Seizures [ ]E. Breathing difficulty [ ]F. Cardiac abnormality (eg, arrhythmia, conduction disturbance) [ ]xvii) Magnesium less than 1 mg/dL (0.41 mmol/L) [ ]xviii) Magnesium less than 1.5 mg/dL (0.62 mmol/L) with ANY ONE of the following: [ ]1) Patient unresponsive to outpatient and emergency treatment [ ]2) Associated hypocalcemia with significant findings; examples include: [ ]A. Altered mental status [ ]B. Muscle spasms [ ]C. Seizures [ ]D. Breathing difficulty [ ]E. Cardiac abnormality (eg, arrhythmia , conduction disturbance) [ ]3) Associated hypokalemia (potassium less than 3 mEq/L (mmol/L)) with risk of arrhythmia [ ]xix) Magnesium greater than 4 mEq/L (2 mmol/L) [ ]xx) Magnesium greater than 2.5 mEq/L (1.25 mmol/L) with significant symptoms or findings; examples include: [ ]1) Weakness [ ]2) Altered mental status [ ]3) Cardiac abnormality (eg, arrhythmia, conduction disturbance) [ ]4) Breathing difficulty [ ]5) Severe medical etiology (eg, renal failure, hypovolemia) [ ]xxi) Uric acid greater than 20 mg/dL (1190 micromoles/L)(76) [ ]xxii) Uric acid greater than 8 mg/dL (476 micromoles/L) with significant symptoms or findings of tumor lysis syndrome; examples include(76): [ ]1) Creatinine greater than 1.5 times upper limit of normal [ ]2) Cardiac abnormality (eg, arrhythmia, conduction disturbance) [ ]3) Seizure [ ]XX. Acute blood loss causing significant abnormality as indicated by ANY ONE of the following(77)(78): [ ]a) Hemoglobin less than 10 g/dL (100 g/L) (not baseline) [ ]b) Hematocrit less than 30% (0.30) (not baseline) [ ]c) Repeat hematocrit decreased more than 2% (0.02) [ ]d) Uncontrolled bleeding [ ]XXI. Severe anemia indicated by ANY ONE of the following(78)(79): [ ]a) Altered mental status [ ]b) Chest pain [ ]c) Exertional dyspnea [ ]d) Syncope [ ]e) Other findings suggesting inadequate perfusion [ ]f) Treatment with transfusion or volume replacement is ineffective at resolving ANY ONE of the following [G]: [ ]i) Tachycardia for age [ ]ii) Orthostatic vital sign changes as indicated by ANY ONE of the following(80): [ ]1) Fall in SBP of 20 mm Hg or more 1 to 3 minutes after patient sits or stands from recumbent position [ ]2) Fall in DBP of 10 mm Hg or more 1 to 3 minutes after patient sits or stands from recumbent position [ ]XXII. High-risk low platelet count as indicated by ANY ONE of the following( 81)(82): [ ]a) Severe or life-threatening bleeding (eg, intracranial, major gastrointestinal, or extensive mucosal bleeding), with any reduced platelet count [ ]b) Platelet count less than 20,000/mm3 (20 x109/L) with any active bleeding [ ]c) Platelet count less than 10,000/mm3 (10 x109/L) with minor purpura or petechiae [ ]d) Platelet count less than 5000/mm3 (5 x109/L) [ ]e) Low platelet count with hemolytic anemia [ ]XXIII. Disseminated intravascular coagulation(77)(83) [ ]XXIV. Severe adverse drug or systemic toxin reaction requiring inpatient treatment; examples include(84)(85): [ ]a) Serotonin syndrome(86) [ ]b) Neuroleptic malignant syndrome(86) [ ]c) Cholinergic syndrome with severe symptoms (eg, bronchorrhea, weakness, mental status changes, seizures) [ ]d) Sympathetic syndrome with severe symptoms (eg, seizures, mental status changes, cardiac dysrhythmias) [ ]e) Anticholinergic syndrome [ ]XXV. Severe pain requiring acute inpatient management as indicated by ALL of the following (87)(88)(89): [ ]a) Continuous or frequent (eg, every 2 to 4 hours) parenteral analgesics required [H] [ ]b) Rapid improvement expected from treatment or acute intervention (eg, surgery, anesthesia procedure) [ ]XXVI.Severe behavioral health issues judged unmanageable at a lower level of care (eg, residential) in a patient who is ANY ONE of the following(91) [ ]a) Acutely suicidal [ ]b) A danger to self (eg, self-mutilating or suicidal behavior) [ ]c) A danger to others (eg, assaultive or homicidal behavior) [ ]d) Incapacitated because of grave disability (eg, inability to provide for self at lower level of care) (92) [ ]XXVII. Inpatient monitoring needed; examples include(1)(3)(87)(93)(94)(95)(96 ): [ ]a) Vital signs, neurologic signs, or vascular checks more frequently than every 4 hours [ ]b) Cardiac or respiratory monitoring beyond the scope (eg, over 24 hours) of observation care [ ]c) Pulmonary artery catheter monitoring [ ]d) Suspected compartment syndrome(97) (98) [ ]e) Cerebral bleeding, hydrocephalus, or vasospasm monitoring [ ]f) Increased intracranial pressure or cerebral edema monitoring [ ]g) monitoring [ ]XXVIII. Treatment requiring inpatient care; examples include: [ ]a) IV fluid to replace significant ongoing losses (greater than 3 L/m2 per day)(53) [ ]b) High concentration oxygen (greater than 40%)(33)(99)(100) [ ]c) Frequent respiratory therapy (more frequently than every 4 hours) to maintain airflow rates greater than 60% of baseline(33)(99)(100) [ ]d) Epidural analgesia(87) [ ]e) IV anticoagulation, vasoactive, or antiarrhythmic medication(19 )(23) [ ]f) Acute thrombolytics (generally require 24 hours of observation )(101)(102) [ ]XXIX. Emergency procedures needed; examples include: [ ]a) Emergency inpatient surgery [ ]b) Temporary pacemaker placement(103) [ ]c) Chest tube placement with active evacuation (eg, suction, drainage)(104) [ ]d) Emergent cardioversion(105) [ ]e) Emergent cardiac or vascular procedures (eg, cardiac catheterization, angioplasty) (17)(18) [ ]f) Emergent dialysis access placement and institution(10)(106) [ ]g) Emergent pericardiocentesis(107) [ ]h) Emergent plasmapheresis or leukapheresis(83) [ ]i) Emergent tracheostomy The original [employer] content created by [employer] has been revised. The portions of the content which have been revised are identified through the use of italic text or in bold, and [employer] has neither reviewed nor approved the modified material. All other unmodified content is copyright [employer]. Please see references footnoted in the original [employer] edition 2016 Admission Criteria Met: Yes
[2016-12-05 22:15] LABS: Albumin 4.4 g/dL (3.8-4.8); Gamma Globulin 1.7 g/dL (0.8-1.7)
[2016-12-07] MEDS ORDERED: FOSAMAX PO SCH (06:00)
== END 2016-12-04 14:42 | disposition home or self-care (01) | DRG 641 ==
LOC: UNDOADMIN 16:10 → 3A 16:10 → CC2 18:40
PROVIDERS: ADMIT Family Medicine; ATTEND Family Medicine
DX: E83.52 Hypercalcemia (principal); M81.0 Age-related osteoporosis without current pathological fracture; E11.9 Type 2 diabetes mellitus without complications; E87.6 Hypokalemia; I10 Essential (primary) hypertension; E78.5 Hyperlipidemia, unspecified; E83.42 Hypomagnesemia; M15.9 Polyosteoarthritis, unspecified; Z88.5 Allergy status to narcotic agent
CPT/HCPCS: 36415; 71250; 74176; 80048; 80053; 82962; 83735; 83970; 84100; 84165; 84166; 85025; 93005; 93010; A9270-GY; C9113; J1650; J1815; J7030

== ENCOUNTER 2016-12-21 09:48 | Outpatient (CLI) | payer MEDICARE ==
--- NOTE | 2016-12-21 11:28 | XRay Report ---
METASTATIC BONE SURVEY History: Hypercalcemia. Findings: Osteopenia is evident. Multiple views of the axial and proximal appendicular skeleton demonstrate no evidence for lytic or blastic lesions. Chronic-appearing superior endplate deformity at T9 is noted. No acute bony deformity. Impression: Osteopenia. No suspicious bony lesions are appreciated. Chronic T9 fracture.
== END 2016-12-21 09:49 | disposition home or self-care (01) ==
LOC: SPVIMAG 09:48
PROVIDERS: ATTEND Internal Medicine Hematology & Oncology
DX: S22.079A Unspecified fracture of T9-T10 vertebra, initial encounter for closed fracture (principal); M85.88 Other specified disorders of bone density and structure, other site; E83.52 Hypercalcemia; X58.XXXA Exposure to other specified factors, initial encounter; Y93.89 Activity, other specified; Y92.89 Other specified places as the place of occurrence of the external cause; Y99.8 Other external cause status
CPT/HCPCS: 77074

== ENCOUNTER 2019-10-13 17:39 | Observation (INO) | payer MEDICARE ==
[2019-10-13 18:07] LABS: Hematocrit 38.7 % (30.3-42.9); Hemoglobin 13.1 gm/dl (10.1-14.3); Mean Corpuscular HGB Conc 34 % (30-34); Mean Corpuscular Volume 89 fl (79-97); Platelet Count 210 K/mm3 (140-440); Red Blood Count 4.34 M/mm3 (3.65-5.03); Red Cell Distribution Width 14.5 % (13.2-15.2)
[2019-10-13 18:17] LABS: INR 0.94 (0.87-1.13)
[2019-10-13 18:18] LABS: Partial Thromboplastin Time 24.5 Sec. (24.2-36.6)
[2019-10-13 18:21] LABS: BUN/Creatinine Ratio 34; Blood Urea Nitrogen 24 mg/dL (7-17); Calcium 9.6 mg/dL (8.4-10.2); Hemolysis Index 2
--- NOTE | 2019-10-13 18:36 | Emergency Department Report ---
HPI - General Chief Complaint: Neuro Symptoms/Deficit Time Seen by Provider: 10/13/19 18:08 - HPI HPI: Room 2 The patient is an 89-year-old female presenting with a chief complaint of confusion. The patient states that she went to the [employer] today to pay a bill. The patient states while at the counter she had difficulty focusing and was unable to write her check. The patient eventually completed her business and went home. The patient states she called her friend because she felt that "something was wrong." The friend in turn brought the patient to the emergency department. Patient denied ever having weakness, numbness or dysarthria. When asked how she is feeling currently the patient replies "I feel fine." ED Past Medical Hx - Past Medical History Previous Medical History?: Yes Hx Hypertension: Yes Hx Diabetes: Yes - Surgical History Past Surgical History?: No - Family History Family history: no significant - Social History Smoking Status: Former Smoker Substance Use Type: None - Medications Home Medications: Home Medications Medication Instructions Recorded Confirmed Last Taken Type AtorvaSTATin 10 mg PO QDAY 12/01/16 12/03/16 Unknown History amLODIPine 10 mg PO QDAY 12/01/16 12/03/16 Unknown History Glimepiride 4 mg PO Q12HR 12/02/16 12/03/16 12/01/16 09:00 History Aspirin BABY CHEW TAB 81 mg PO QDAY #30 12/04/16 Unknown Rx AtorvaSTATin 10 mg PO QHS #30 tablet 12/04/16 Unknown Rx Glimepiride [Amaryl] 4 mg PO Q12HR #60 tablet 12/04/16 Unknown Rx Metformin HCl 1,000 mg PO Q12HR #60 12/04/16 Unknown Rx amLODIPine 10 mg PO QDAY #30 tablet 12/04/16 Unknown Rx ED Review of Systems ROS: Stated complaint: BLURRY VISION Other details as noted in HPI Constitutional: no symptoms reported Eyes: denies: eye pain ENT: denies: throat pain Respiratory: no symptoms reported Cardiovascular: denies: chest pain Endocrine: no symptoms reported Gastrointestinal: denies: abdominal pain Musculoskeletal: denies: back pain Neurological: confusion. denies: headache Physical Exam - Physical Exam Vital Signs: Vital Signs 10/13/19 18:13 Temperature 96.8 F L Pulse Rate 95 H Respiratory 24 Rate Blood Pressure 242/117 O2 Sat by Pulse 97 Oximetry Physical Exam: GENERAL: The patient is well-developed well-nourished female sitting on stretcher not appearing to be in acute distress. [] HEENT: Normocephalic. Atraumatic. Extraocular motions are intact. Patient has moist mucous membranes. NECK: Supple. Trachea midline CHEST/LUNGS: Clear to auscultation. There is no respiratory distress noted. HEART/CARDIOVASCULAR: Regular. There is no tachycardia. There is no gallop rub or murmur. ABDOMEN: Abdomen is soft, nontender. Patient has normal bowel sounds. There is no abdominal distention. SKIN: There is no rash. There is no edema. There is no diaphoresis. NEURO: The patient is awake, alert, and oriented. The patient is cooperative. The patient has no focal neurologic deficits. The patient has normal speech. Cranial nerves II through XII grossly intact. Moves all extremities well MUSCULOSKELETAL: There is no evidence of acute injury. ED Course Vital Signs 10/13/19 18:13 Temperature 96.8 F L Pulse Rate 95 H Respiratory 24 Rate Blood Pressure 242/117 O2 Sat by Pulse 97 Oximetry - Consultations Consultation #1: 10/13/19 18:35 Case discussed with telemetry neurologist-states believes patient's presentation is likely hypertensive crisis. His CT scan negative recommends brain systolic blood pressure to approximately 180 today ED Medical Decision Making - Lab Data Result diagrams: 10/13/19 18:00 10/13/19 18:00 Laboratory Tests 10/13/19 10/13/19 10/13/19 17:54 18:00 18:00 WBC 9.2 RBC 4.34 Hgb 13.1 Hct 38.7 MCV 89 MCH 30 MCHC 34 RDW 14.5 Plt Count 210 Eos % (Auto) Mechanical Development Engineer PT 12.7 INR 0.94 APTT 24.5 Sodium Potassium Chloride Carbon Dioxide Anion Gap BUN Creatinine Estimated GFR BUN/Creatinine Ratio Glucose POC Glucose 129 H Calcium Troponin T 10/13/19 18:00 WBC RBC Hgb Hct MCV MCH MCHC RDW Plt Count Eos % (Auto) PT INR APTT Sodium 140 Potassium 3.5 L Chloride 101.8 Carbon Dioxide 22 Anion Gap 20 BUN 24 H Creatinine 0.7 Estimated GFR > 60 BUN/Creatinine Ratio 34 Glucose 148 H POC Glucose Calcium 9.6 Troponin T < 0.010 - EKG Data -: EKG Interpreted by N[place] EKG shows normal: sinus rhythm Rate: normal - EKG Data When compared to previous EKG there are: previous EKG unavailable Interpretation: other (No ischemic changes seen) - Radiology Data Radiology results: report reviewed (CT head (discussed with radiologist via phone)), image reviewed (CT head) CT head (discussed with radiologist via phone)-no acute abnormality - Differential Diagnosis ICH, TIA, CVA, hypertensive urgency Critical care attestation.: If time is entered above; I have spent that time in minutes in the direct care of this critically ill patient, excluding procedure time. ED Disposition Clinical Impression: Hypertensive urgency, Transient confusion Disposition: DC-09 OP ADMIT IP TO THIS HOSP Is pt being admited?: Yes Does the pt Need Aspirin: Yes Condition: Fair Referrals: PRIMARY CARE, [Primary Care Provider] - 3-5 Days Time of Disposition: 18:47 (Hospitalist notified)
[2019-10-13] MEDS ORDERED: ASPIRIN 325 MG TAB PO ONE (18:38)
--- NOTE | 2019-10-13 18:40 | Cat Scan Report ---
CT HEAD WITHOUT CONTRAST INDICATION / CLINICAL INFORMATION: neuro deficits <6hrs or sx present upon awakening. TECHNIQUE: All CT scans at this location are performed using CT dose reduction for ALARA by means of automated e xposure control. COMPARISON: None available. FINDINGS: HEMORRHAGE: No evidence of intracranial hemorrhage or extra-axial fluid collection. EXTRA-AXIAL SPACES: Cortical sulci and sylvian fissures are enlarged reflecting a degree of parenchym al volume loss which is within normal limits for the patient's age of 89 years. Basilar cisterns have an unremarkable appearance. VENTRICULAR SYSTEM: The third and lateral ventricles are enlarged reflecting resonance of age related parenchymal volume loss. CEREBRAL PARENCHYMA: Periventricular and deep white matter lucency is observed. This is probably seco ndary to microvascular ischemic change. There is no indication of recent infarction. Evidence of adalid te small deep infarction is noted in the right thalamus and in the region of the anterior limb of the left internal capsule and adjacent guerra radiata. Evaluation for acute or subacute ischemia would b e enhanced utilizing MRI with diffusion-weighted scans. MIDLINE SHIFT OR HERNIATION: There is no mass effect. CEREBELLUM / BRAINSTEM: Brainstem and cerebellum have an unremarkable appearance. INTRACRANIAL VESSELS:Calcified atherosclerotic plaque is present along the course of the cavernous se gments of both internal carotid arteries. Similar findings are seen at the distal vertebral arteries. ORBITS: Status post bilateral cataract surgery. Visualized portions of the orbits have an otherwise u nremarkable appearance. SOFT TISSUES of HEAD: No significant abnormality. CALVARIUM: Evaluation of bone windows reveals no abnormalities. PARANASAL SINUSES / MASTOID AIR CELLS: Paranasal sinuses are free from inflammatory mucosal disease. Mastoid air cells are normally pneumatized. IMPRESSION: 1. Age-related atrophy and microvascular ischemic change. 2. 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 3. No acute intracranial abnormalities are identified. Code stroke: I was notified by the [facility] manufacturing engineering technologist this patient is code stroke at about 1728 Central standard time on 10/13/2019. The patient's study was marked stat but there was no indication of code stroke. I called report of this study to Dr. Gao (sp) [facility] emergency department at about 1735 Central standard time Signer Name: Michael Butler MD Signed: 10/13/2019 6:35 PM Workstation Name: [id number]
[2019-10-13 18:55] LABS: RBC Morphology Normal; Total Cells Counted 100
--- NOTE | 2019-10-13 19:35 | Emergency Department Report ---
ED Neuro Deficit HPI - General Chief Complaint: Neuro Symptoms/Deficit Stated Complaint: BLURRY VISION Time Seen by Provider: 10/13/19 18:08 Source: patient Mode of arrival: Ambulatory Limitations: No Limitations - History of Present Illness Initial Comments: [employer] [facility] Date of Service: 10/13/2019 17:51:03 Impression: Transient Ischemic Attack Comments/Sign-Out: This patient is not symptomatic but she is multiple risk factors and her blood pressure was extremely high. Whereas this might've been a left hemisphere TIA is also possible this is just a hypertensive emergency. With the extreme high blood pressure and blurred vision I would consider posterior reversible encephalopathy syndrome. Mechanism of Stroke: Probably hypertensive crisis Metrics: Last Known Well: 10/13/2019 16:00:00 [employer] Notification Time: 10/13/2019 17:50:36 Arrival Time: 10/13/2019 17:43:00 Stamp Time: 10/13/2019 17:51:03 Time First Login Attempt: 10/13/2019 17:56:11 Video Start Time: 10/13/2019 17:56:11 Symptoms: Blurred vision, could not write a check NIHSS Start Assessment Time: 10/13/2019 17:59:38 Patient is not a candidate for tPA. Patient was not deemed candidate for tPA thrombolytics because of Resolved symptoms (no residual disabling symptoms). Video End Time: 10/13/2019 18:08:28 CT head was not reviewed. Clinical Presentation is not Suggestive of Large Vessel Occlusive Disease, Patient is not a Candidate for Thrombectomy Radiologist was not called back for review of advanced imaging because Not indicated. Note: CT was not yet available at the time of this dictation and there were difficulties accessing the medical records. ED Physician notified of diagnostic impression and management plan on 10/13/2019 18:07:00 Our recommendations are outlined below. Recommendations: Activate Stroke Protocol Admission/Order Set Stroke/Telemetry Floor Neuro Checks Bedside Swallow Eval DVT Prophylaxis IV Fluids, Normal Saline Head of Bed Below 30 Degrees Euglycemia and Avoid Hyperthermia (PRN Acetaminophen) Antiplatelet Therapy Recommended Blood pressure control but only down to [address] shows a hemorrhage I would go a bit lower. 140 would be ideal. Recommended Scan: MRI Head Lipid Panel to Be Obtained, if Not Done in the Last 30 Days Therapies: Physical Therapy, Occupational Therapy, Speech Therapy Assessment When Applicable Dysphaghia Screen: Swallow Evaluation, Bedside NPO Until Swallow Evaluation DVT prophylaxis: Choice of Primary Team Disposition: Neurology Follow Up Recommended Sign Out: Discussed with Emergency Department Provider History of Present Illness: Patient is a 89 year old Female. Patient was brought by private transportation with symptoms of Blurred vision, could not write a check This 89-year-old woman who apparently is independent forgot how to write a check at about 1600 and had blurred vision. She might've been confused with numbers. She feels better now. She has history of hypertension and diabetes. She has no h istory of heart disease. She has hyperlipidemia. She is not on antiplatelet or anticoagulant medication. CT head was not reviewed. Last seen normal was within 4.5 hours. There is no history of hemorrhagic complications or intracranial hemorrhage. There is no history of Recent Anticoagulants. There is no history of recent major surgery. There is no history of recent stroke. Examination: BP(242/117), Pulse(95), Blood Glucose(129) 1A: Level of Consciousness - Alert; keenly responsive + 0 1B: Ask Month and Age - Both Questions Right + 0 1C: Blink Eyes & Squeeze Hands - Performs Both Tasks + 0 2: Test Horizontal Extraocular Movements - Normal + 0 3: Test Visual [place] - No Visual Loss + 0 4: Test Facial Palsy (Use Grimace if Obtunded) - Normal symmetry + 0 5A: Test Left Arm Motor Drift - No Drift for 10 Seconds + 0 5B: Test Right Arm Motor Drift - No Drift for 10 Seconds + 0 6A: Test Left Leg Motor Drift - No Drift for 5 Seconds + 0 6B: Test Right Leg Motor Drift - No Drift for 5 Seconds + 0 7: Test Limb Ataxia (FNF/Heel-Asnders) - No Ataxia + 0 8: Test Sensation - Normal; No sensory loss + 0 9: Test Language/Aphasia - Normal; No aphasia + 0 10: Test Dysarthria - Normal + 0 11: Test Extinction/Inattention - No abnormality + 0 NIHSS Score: 0 Patient was informed the Neurology Consult would happen via TeleHealth consult by way of interactive audio and video telecommunications and consented to receiving care in this manner. Due to the immediate potential for life-threatening deterioration due to underlying acute neurologic illness, I spent 35 minutes providing critical care. This time includes time for face to face visit via telemedicine, review of medical records, imaging studies and discussion of findings with providers, the patient and/or family. Dr Momo Leger [employer] Case [id number] - Related Data Home Medications: Home Medications Medication Instructions Recorded Confirmed Last Taken AtorvaSTATin 10 mg PO QDAY 12/01/16 12/03/16 Unknown amLODIPine 10 mg PO QDAY 12/01/16 12/03/16 Unknown Glimepiride 4 mg PO Q12HR 12/02/16 12/03/16 12/01/16 09:00 Previous Rx's Medication Instructions Recorded Last Taken Type Aspirin BABY CHEW TAB 81 mg PO QDAY #30 12/04/16 Unknown Rx AtorvaSTATin 10 mg PO QHS #30 tablet 12/04/16 Unknown Rx Glimepiride [Amaryl] 4 mg PO Q12HR #60 tablet 12/04/16 Unknown Rx Metformin HCl 1,000 mg PO Q12HR #60 12/04/16 Unknown Rx amLODIPine 10 mg PO QDAY #30 tablet 12/04/16 Unknown Rx Allergies/Adverse Reactions: Allergies Allergy/AdvReac Type Severity Reaction Status Date / Time codeine AdvReac Unknown Verified 12/01/16 16:19 lisinopril AdvReac Unknown Verified 12/01/16 16:19 ED Review of Systems ROS: Stated complaint: BLURRY VISION Other details as noted in HPI Constitutional: no symptoms reported Eyes: denies: eye pain ENT: denies: throat pain Respiratory: no symptoms reported Cardiovascular: denies: chest pain Endocrine: no symptoms reported Gastrointestinal: denies: abdominal pain Musculoskeletal: denies: back pain Neurological: confusion. denies: headache ED Past Medical Hx - Past Medical History Previous Medical History?: Yes Hx Hypertension: Yes Hx Diabetes: Yes Hx HIV: No - Surgical History Past Surgical History?: No - Social History Smoking Status: Former Smoker Substance Use Type: None - Medications Home Medications: Home Medications Medication Instructions Recorded Confirmed Last Taken Type AtorvaSTATin 10 mg PO QDAY 12/01/16 12/03/16 Unknown History amLODIPine 10 mg PO QDAY 12/01/16 12/03/16 Unknown History Glimepiride 4 mg PO Q12HR 12/02/16 12/03/16 12/01/16 09:00 History Aspirin BABY CHEW TAB 81 mg PO QDAY #30 12/04/16 Unknown Rx AtorvaSTATin 10 mg PO QHS #30 tablet 12/04/16 Unknown Rx Glimepiride [Amaryl] 4 mg PO Q12HR #60 tablet 12/04/16 Unknown Rx Metformin HCl 1,000 mg PO Q12HR #60 12/04/16 Unknown Rx amLODIPine 10 mg PO QDAY #30 tablet 12/04/16 Unknown Rx ED Neuro Physical Exam - General Limitations: No Limitations General appearance: alert Suspected Stroke: Yes - NIHSS Assessment Interval: Baseline 1a. Level of Consciousness: alert/keenly responsive 1b. LOC Questions: answers both correctly 1c. LOC Commands: performs tasks correctly 2. Best Gaze: normal 3. Visual: no visual loss 4. Facial Palsy: normal symmetrical movement 5b. Motor Arm Right: no drift 5a. Motor Arm Left: no drift 6a. Motor Leg Left: no drift 6b. Motor Leg Right: no drift 7. Limb Ataxia: absent 8. Sensory: normal 9. Best Language: no aphasia 10. Dysarthria: normal 11. Extinction/Inattention: no abnormality Total Score: 0 Stroke Severity: No Stroke Symptoms ED Course Vital Signs 10/13/19 10/13/19 18:13 18:50 Temperature 96.8 F L Pulse Rate 95 H 94 H Respiratory 24 Rate Blood Pressure 242/117 221/113 O2 Sat by Pulse 97 Oximetry - Lab Data Result diagrams: 10/13/19 18:00 10/13/19 18:00 Lab Results 10/13/19 10/13/19 10/13/19 Range/Units 17:54 18:00 18:00 WBC 9.2 (4.5-11.0) K/mm3 RBC 4.34 (3.65-5.03) M/mm3 Hgb 13.1 (10.1-14.3) gm/dl Hct 38.7 (30.3-42.9) % MCV 89 (79-97) fl MCH 30 (28-32) pg MCHC 34 (30-34) % RDW 14.5 (13.2-15.2) % Plt Count 210 (140-440) K/mm3 Eos % (Auto) Mental Health Program Director Add Manual Diff Complete Total Counted 100 Seg Neuts % (Manual) 60.0 (40.0-70.0) % Band Neutrophils % 0 % Lymphocytes % (Manual) 9.0 L (13.4-35.0) % Reactive Lymphs % (Man) 0 % Monocytes % (Manual) 10.0 H (0.0-7.3) % Eosinophils % (Manual) 20.0 H (0.0-4.3) % Basophils % (Manual) 1.0 (0.0-1.8) % Metamyelocytes % 0 % Myelocytes % 0 % Promyelocytes % 0 % Blast Cells % 0 % Nucleated RBC % Not Reportable Seg Neutrophils # Man 5.5 (1.8-7.7) K/mm3 Band Neutrophils # 0.0 K/mm3 Lymphocytes # (Manual) 0.8 L (1.2-5.4) K/mm3 Abs React Lymphs (Man) 0.0 K/mm3 Monocytes # (Manual) 0.9 H (0.0-0.8) K/mm3 Eosinophils # (Manual) 1.8 H (0.0-0.4) K/mm3 Basophils # (Manual) 0.1 (0.0-0.1) K/mm3 Metamyelocytes # 0.0 K/mm3 Myelocytes # 0.0 K/mm3 Promyelocytes # 0.0 K/mm3 Blast Cells # 0.0 K/mm3 WBC Morphology Not Reportable Hypersegmented Neuts Not Reportable Hyposegmented Neuts Not Reportable Hypogranular Neuts Not Reportable Smudge Cells Not Reportable Toxic Granulation Not Reportable Toxic Vacuolation Not Reportable Dohle Bodies Not Reportable Pelger-Huet Anomaly Not Reportable Jo-Ann Rods Not Reportable Platelet Estimate Not Reportable Clumped Platelets Not Reportable Plt Clumps, EDTA Not Reportable Large Platelets Not Reportable Giant Platelets Not Reportable Platelet Satelliting Not Reportable Plt Morphology Comment Not Reportable RBC Morphology Normal Dimorphic RBCs Not Reportable Polychromasia Not Reportable Hypochromasia Not Reportable Poikilocytosis Not Reportable Anisocytosis Not Reportable Microcytosis Not Reportable Macrocytosis Not Reportable Spherocytes Not Reportable Pappenheimer Bodies Not Reportable Sickle Cells Not Reportable Target Cells Not Reportable Tear Drop Cells Not Reportable Ovalocytes Not Reportable Helmet Cells Not Reportable Lin-[place] Bodies Not Reportable [place] Rings Not Reportable Caleb Cells Not Reportable Bite Cells Not Reportable Crenated Cell Not Reportable Elliptocytes Not Reportable Acanthocytes (Spur) Not Reportable Rouleaux Not Reportable Hemoglobin C Crystals Not Reportable Schistocytes Not Reportable Malaria parasites Not Reportable Cyril Bodies Not Reportable Hem Pathologist Commnt No PT 12.7 (12.2-14.9) Sec. INR 0.94 (0.87-1.13) APTT 24.5 (24.2-36.6) Sec. Thrombin Time (15.1-19.6) Sec. Sodium (137-145) mmol/L Potassium (3.6-5.0) mmol/L Chloride (98-107) mmol/L Carbon Dioxide (22-30) mmol/L Anion Gap mmol/L BUN (7-17) mg/dL Creatinine (0.7-1.2) mg/dL Estimated GFR ml/min BUN/Creatinine Ratio % Glucose (65-100) mg/dL POC Glucose 129 H (70-105) Calcium (8.4-10.2) mg/dL Troponin T (0.00-0.029) ng/mL 10/13/19 10/13/19 Range/Units 18:00 18:00 WBC (4.5-11.0) K/mm3 RBC (3.65-5.03) M/mm3 Hgb (10.1-14.3) gm/dl Hct (30.3-42.9) % MCV (79-97) fl MCH (28-32) pg MCHC (30-34) % RDW (13.2-15.2) % Plt Count (140-440) K/mm3 Eos % (Auto) Add Manual Diff Total Counted Seg Neuts % (Manual) (40.0-70.0) % Band Neutrophils % % Lymphocytes % (Manual) (13.4-35.0) % Reactive Lymphs % (Man) % Monocytes % (Manual) (0.0-7.3) % Eosinophils % (Manual) (0.0-4.3) % Basophils % (Manual) (0.0-1.8) % Metamyelocytes % % Myelocytes % % Promyelocytes % % Blast Cells % % Nucleated RBC % Seg Neutrophils # Man (1.8-7.7) K/mm3 Band Neutrophils # K/mm3 Lymphocytes # (Manual) (1.2-5.4) K/mm3 Abs React Lymphs (Man) K/mm3 Monocytes # (Manual) (0.0-0.8) K/mm3 Eosinophils # (Manual) (0.0-0.4) K/mm3 Basophils # (Manual) (0.0-0.1) K/mm3 Metamyelocytes # K/mm3 Myelocytes # K/mm3 Promyelocytes # K/mm3 Blast Cells # K/mm3 WBC Morphology Hypersegmented Neuts Hyposegmented Neuts Hypogranular Neuts Smudge Cells Toxic Granulation Toxic Vacuolation Dohle Bodies Pelger-Huet Anomaly Jo-Ann Rods Platelet Estimate Clumped Platelets Plt Clumps, EDTA Large Platelets Giant Platelets Platelet Satelliting Plt Morphology Comment RBC Morphology Dimorphic RBCs Polychromasia Hypochromasia Poikilocytosis Anisocytosis Microcytosis Macrocytosis Spherocytes Pappenheimer Bodies Sickle Cells Target Cells Tear Drop Cells Ovalocytes Helmet Cells Lin-[place] Bodies [place] Rings Caleb Cells Bite Cells Crenated Cell Elliptocytes Acanthocytes (Spur) Rouleaux Hemoglobin C Crystals Schistocytes Malaria parasites Cyril Bodies Hem Pathologist Commnt PT (12.2-14.9) Sec. INR (0.87-1.13) APTT (24.2-36.6) Sec. Thrombin Time 17.0 (15.1-19.6) Sec. Sodium 140 (137-145) mmol/L Potassium 3.5 L (3.6-5.0) mmol/L Chloride 101.8 (98-107) mmol/L Carbon Dioxide 22 (22-30) mmol/L Anion Gap 20 mmol/L BUN 24 H (7-17) mg/dL Creatinine 0.7 (0.7-1.2) mg/dL Estimated GFR > 60 ml/min BUN/Creatinine Ratio 34 % Glucose 148 H (65-100) mg/dL POC Glucose (70-105) Calcium 9.6 (8.4-10.2) mg/dL Troponin T < 0.010 (0.00-0.029) ng/mL Critical care attestation.: If time is entered above; I have spent that time in minutes in the direct care of this critically ill patient, excluding procedure time. ED Disposition Clinical Impression: Hypertensive urgency Disposition: DC-09 OP ADMIT IP TO THIS HOSP Is pt being admited?: Yes Condition: Fair Instructions: Hypertensive Crisis (ED) Referrals: PRIMARY CARE, [Primary Care Provider] - 3-5 Days
--- NOTE | 2019-10-14 00:13 | History and Physical Report ---
History of Present Illness Date of examination: 10/13/19 Date of admission: 10/13/19 18:45 Chief complaint: Confusion since AM History of present illness: 89-year-old female presenting with a chief complaint of confusion. The patient states that she went to the [place] today to pay a bill. The patient states while at the counter she had difficulty focusing and was unable to write her check. The patient eventually completed her business and went home. The patient states she called her friend because she felt that "something was wrong." The friend in turn brought the patient to the emergency department. Patient denied ever having weakness, numbness or dysarthria. When asked how she is feeling currently the patient replies "I feel fine." Past Medical History Previous Medical History?: Yes Hypertension: Yes Diabetes: Yes Surgical History Past Surgical History?: No Family History Family history: no significant Social History Smoking Status: Former Smoker Substance Use Type: None - Medications Home Medications: Home Medications Medication Instructions Recorded Confirmed Last Taken Type AtorvaSTATin 10 mg PO QDAY 12/01/16 12/03/16 Unknown History amLODIPine 10 mg PO QDAY 12/01/16 12/03/16 Unknown History Glimepiride 4 mg PO Q12HR 12/02/16 12/03/16 12/01/16 09:00 History Aspirin BABY CHEW TAB 81 mg PO QDAY #30 12/04/16 Unknown Rx AtorvaSTATin 10 mg PO QHS #30 tablet 12/04/16 Unknown Rx Glimepiride [Amaryl] 4 mg PO Q12HR #60 tablet 12/04/16 Unknown Rx Metformin HCl 1,000 mg PO Q12HR #60 12/04/16 Unknown Rx amLODIPine 10 mg PO QDAY #30 tablet 12/04/16 Unknown Rx Review of Systems ROS: Stated complaint: BLURRY VISION Other details as noted in HPI Constitutional: no symptoms reported Eyes: denies: eye pain ENT: denies: throat pain Respiratory: no symptoms reported Cardiovascular: denies: chest pain Endocrine: no symptoms reported Gastrointestinal: denies: abdominal pain Musculoskeletal: denies: back pain Neurological: confusion. denies: headache Medications and Allergies Allergies Allergy/AdvReac Type Severity Reaction Status Date / Time codeine AdvReac Unknown Verified 12/01/16 16:19 lisinopril AdvReac Unknown Verified 12/01/16 16:19 Home Medications Medication Instructions Recorded Confirmed Last Taken Type AtorvaSTATin 10 mg PO QDAY 12/01/16 12/03/16 Unknown History amLODIPine 10 mg PO QDAY 12/01/16 12/03/16 Unknown History Glimepiride 4 mg PO Q12HR 12/02/16 12/03/16 12/01/16 09:00 History Aspirin BABY CHEW TAB 81 mg PO QDAY #30 12/04/16 Unknown Rx AtorvaSTATin 10 mg PO QHS #30 tablet 12/04/16 Unknown Rx Glimepiride [Amaryl] 4 mg PO Q12HR #60 tablet 12/04/16 Unknown Rx Metformin HCl 1,000 mg PO Q12HR #60 12/04/16 Unknown Rx amLODIPine 10 mg PO QDAY #30 tablet 12/04/16 Unknown Rx Exam - Constitutional Vitals: Temp Pulse Resp BP Pulse Ox 97.8 F 78 16 155/88 96 10/13/19 21:46 10/13/19 21:46 10/13/19 21:46 10/13/19 21:46 10/13/19 21:46 General appearance: Present: no acute distress, well-nourished - EENT Eyes: Present: PERRL ENT: hearing intact, clear oral mucosa - Neck Neck: Present: supple, normal ROM - Respiratory Respiratory effort: normal Respiratory: bilateral: CTA - Cardiovascular Heart rate: 78 Rhythm: regular Heart Sounds: Present: S1 & S2. Absent: rub, click - Extremities Extremities: pulses symmetrical, No edema Peripheral Pulses: within normal limits - Abdominal General gastrointestinal: Present: soft, non-tender, non-distended, normal bowel sounds Female genitourinary: Present: normal - Integumentary Integumentary: Present: clear, warm, dry - Musculoskeletal Musculoskeletal: gait normal, strength equal bilaterally - Psychiatric Psychiatric: appropriate mood/affect, intact judgment & insight - Neurologic Neurologic: CNII-XII intact, moves all extremities - Allied Health Allied health notes reviewed: nursing, case management Results - Labs CBC & Chem 7: 10/13/19 18:00 10/13/19 18:00 Labs: Laboratory Last Values WBC 9.2 K/mm3 (4.5-11.0) 10/13/19 18:00 RBC 4.34 M/mm3 (3.65-5.03) 10/13/19 18:00 Hgb 13.1 gm/dl (10.1-14.3) 10/13/19 18:00 Hct 38.7 % (30.3-42.9) 10/13/19 18:00 MCV 89 fl (79-97) 10/13/19 18:00 MCH 30 pg (28-32) 10/13/19 18:00 MCHC 34 % (30-34) 10/13/19 18:00 RDW 14.5 % (13.2-15.2) 10/13/19 18:00 Plt Count 210 K/mm3 (140-440) 10/13/19 18:00 Eos % (Auto) Fundraising Manager 10/13/19 18:00 Add Manual Diff Complete 10/13/19 18:00 Total Counted 100 10/13/19 18:00 Seg Neuts % (Manual) 60.0 % (40.0-70.0) 10/13/19 18:00 Band Neutrophils % 0 % 10/13/19 18:00 Lymphocytes % (Manual) 9.0 % (13.4-35.0) L 10/13/19 18:00 Reactive Lymphs % (Man) 0 % 10/13/19 18:00 Monocytes % (Manual) 10.0 % (0.0-7.3) H 10/13/19 18:00 Eosinophils % (Manual) 20.0 % (0.0-4.3) H 10/13/19 18:00 Basophils % (Manual) 1.0 % (0.0-1.8) 10/13/19 18:00 Metamyelocytes % 0 % 10/13/19 18:00 Myelocytes % 0 % 10/13/19 18:00 Promyelocytes % 0 % 10/13/19 18:00 Blast Cells % 0 % 10/13/19 18:00 Nucleated RBC % Not Reportable 10/13/19 18:00 Seg Neutrophils # Man 5.5 K/mm3 (1.8-7.7) 10/13/19 18:00 Band Neutrophils # 0.0 K/mm3 10/13/19 18:00 Lymphocytes # (Manual) 0.8 K/mm3 (1.2-5.4) L 10/13/19 18:00 Abs React Lymphs (Man) 0.0 K/mm3 10/13/19 18:00 Monocytes # (Manual) 0.9 K/mm3 (0.0-0.8) H 10/13/19 18:00 Eosinophils # (Manual) 1.8 K/mm3 (0.0-0.4) H 10/13/19 18:00 Basophils # (Manual) 0.1 K/mm3 (0.0-0.1) 10/13/19 18:00 Metamyelocytes # 0.0 K/mm3 10/13/19 18:00 Myelocytes # 0.0 K/mm3 10/13/19 18:00 Promyelocytes # 0.0 K/mm3 10/13/19 18:00 Blast Cells # 0.0 K/mm3 10/13/19 18:00 WBC Morphology Not Reportable 10/13/19 18:00 Hypersegmented Neuts Not Reportable 10/13/19 18:00 Hyposegmented Neuts Not Reportable 10/13/19 18:00 Hypogranular Neuts Not Reportable 10/13/19 18:00 Smudge Cells Not Reportable 10/13/19 18:00 Toxic Granulation Not Reportable 10/13/19 18:00 Toxic Vacuolation Not Reportable 10/13/19 18:00 Dohle Bodies Not Reportable 10/13/19 18:00 Pelger-Huet Anomaly Not Reportable 10/13/19 18:00 Jo-Ann Rods Not Reportable 10/13/19 18:00 Platelet Estimate Not Reportable 10/13/19 18:00 Clumped Platelets Not Reportable 10/13/19 18:00 Plt Clumps, EDTA Not Reportable 10/13/19 18:00 Large Platelets Not Reportable 10/13/19 18:00 Giant Platelets Not Reportable 10/13/19 18:00 Platelet Satelliting Not Reportable 10/13/19 18:00 Plt Morphology Comment Not Reportable 10/13/19 18:00 RBC Morphology Normal 10/13/19 18:00 Dimorphic RBCs Not Reportable 10/13/19 18:00 Polychromasia Not Reportable 10/13/19 18:00 Hypochromasia Not Reportable 10/13/19 18:00 Poikilocytosis Not Reportable 10/13/19 18:00 Anisocytosis Not Reportable 10/13/19 18:00 Microcytosis Not Reportable 10/13/19 18:00 Macrocytosis Not Reportable 10/13/19 18:00 Spherocytes Not Reportable 10/13/19 18:00 Pappenheimer Bodies Not Reportable 10/13/19 18:00 Sickle Cells Not Reportable 10/13/19 18:00 Target Cells Not Reportable 10/13/19 18:00 Tear Drop Cells Not Reportable 10/13/19 18:00 Ovalocytes Not Reportable 10/13/19 18:00 Helmet Cells Not Reportable 10/13/19 18:00 [place] Bodies Not Reportable 10/13/19 18:00 [place] Rings Not Reportable 10/13/19 18:00 Caleb Cells Not Reportable 10/13/19 18:00 Bite Cells Not Reportable 10/13/19 18:00 Crenated Cell Not Reportable 10/13/19 18:00 Elliptocytes Not Reportable 10/13/19 18:00 Acanthocytes (Spur) Not Reportable 10/13/19 18:00 Rouleaux Not Reportable 10/13/19 18:00 Hemoglobin C Crystals Not Reportable 10/13/19 18:00 Schistocytes Not Reportable 10/13/19 18:00 Malaria parasites Not Reportable 10/13/19 18:00 Cyril Bodies Not Reportable 10/13/19 18:00 Hem Pathologist Commnt No 10/13/19 18:00 PT 12.7 Sec. (12.2-14.9) 10/13/19 18:00 INR 0.94 (0.87-1.13) 10/13/19 18:00 APTT 24.5 Sec. (24.2-36.6) 10/13/19 18:00 Thrombin Time 17.0 Sec. (15.1-19.6) 10/13/19 18:00 Sodium 140 mmol/L (137-145) 10/13/19 18:00 Potassium 3.5 mmol/L (3.6-5.0) L 10/13/19 18:00 Chloride 101.8 mmol/L (98-107) 10/13/19 18:00 Carbon Dioxide 22 mmol/L (22-30) 10/13/19 18:00 Anion Gap 20 mmol/L 10/13/19 18:00 BUN 24 mg/dL (7-17) H 10/13/19 18:00 Creatinine 0.7 mg/dL (0.7-1.2) 10/13/19 18:00 Estimated GFR > 60 ml/min 10/13/19 18:00 BUN/Creatinine Ratio 34 % 10/13/19 18:00 Glucose 148 mg/dL (65-100) H 10/13/19 18:00 POC Glucose 147 (70-105) H 10/13/19 22:00 Calcium 9.6 mg/dL (8.4-10.2) 10/13/19 18:00 Troponin T < 0.010 ng/mL (0.00-0.029) 10/13/19 18:00 - Imaging and Cardiology EKG: report reviewed Imaging and Cardiology: CT Head IMPRESSION: 1. Age-related atrophy and microvascular ischemic change. 2. 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 3. No acute intracranial abnormalities are identified. Code stroke: Mcbride/IV: Voiding Method Toilet Assessment and Plan Advance Directives: Yes (Full code) VTE prophylaxis?: Chemical Plan of care discussed with patient/family: Yes - Patient Problems (1) TIA (transient ischemic attack) Current Visit: Yes Status: Acute Plan to address problem: High loikely dickens of TIA TIA work up MRI Echo and Carotid duplex scan (2) Hypertensive urgency Current Visit: Yes Status: Acute Plan to address problem: IV Hydralazine 10 mg q3 prn COnt antihypertensives (3) Type 2 diabetes mellitus Current Visit: No Status: Chronic Qualifiers: Diabetes mellitus jail insulin use: without jail use Diabetes mellitus complication status: without complication Qualified Code(s): E11.9 - Type 2 diabetes mellitus without complications Plan to address problem: Glimepride decreased to once a day Potential cause of Hypoglycemia Add Linagliptin A1c (4) Hypokalemia Current Visit: No Status: Acute Plan to address problem: Mild supplemented (5) DVT prophylaxis Current Visit: Yes Status: Acute Plan to address problem: On Heparin and GI prophylaxis
[2019-10-14] MEDS ORDERED: ONDANSETRON 4 MG/2 ML INJ IV PRN (00:15)
[2019-10-14] MEDS ORDERED: ACETAMINOPHEN 325 MG TAB PO PRN (00:15)
[2019-10-14] MEDS ORDERED: HYDROmorphone 1 MG/1 ML INJ IV PRN (00:15)
[2019-10-14] MEDS ORDERED: METFORMIN HCL 1000 MG PO SCH (00:15)
[2019-10-14] MEDS ORDERED: METOCLOPRAMIDE 10 MG/2 ML INJ IV PRN ×2 (00:15→00:37)
[2019-10-14] MEDS ORDERED: oxyCODONE /ACETAMINOPHEN 5-325MG TAB PO PRN (00:15)
[2019-10-14] MEDS ORDERED: hydrALAZINE 20 MG/1 ML INJ IV PRN (00:17)
[2019-10-14] MEDS: VALSARTAN 40 MG TAB PO SCH ×2 (01:12→11:51)
[2019-10-14] MEDS: carvediloL 6.25 MG TAB PO SCH ×2 (01:13→11:50)
[2019-10-14] MEDS ORDERED: POTASSIUM CHLORIDE ER 20 MEQ TAB PO NR (07:20)
[2019-10-14] MEDS ORDERED: GLIMEPIRIDE 4 MG TAB PO SCH (08:00)
[2019-10-14] MEDS ORDERED: LINAGLIPTIN 5 MG TAB PO SCH (08:00)
[2019-10-14] MEDS ORDERED: metFORMIN 500 MG TAB PO SCH (08:00)
[2019-10-14] MEDS ORDERED: NON-FORMULARY EACH (Aspirin Baby Chew Tab 81 MG) PO SCH (10:00)
[2019-10-14] MEDS ORDERED: NON-FORMULARY EACH (Glimepiride 4 MG) PO SCH (10:00)
[2019-10-14] MEDS ORDERED: NON-FORMULARY EACH (Amlodipine 10 MG) PO SCH (10:00)
[2019-10-14] MEDS ORDERED: NON-FORMULARY EACH (Atorvastatin 10 MG) PO SCH (10:00)
[2019-10-14] MEDS ORDERED: ASPIRIN 81 MG TAB CHEW PO SCH (10:00)
[2019-10-14] MEDS ORDERED: amLODIPine 10 MG TAB PO SCH (10:00)
[2019-10-14] MEDS ORDERED: HEPARIN 5,000 UNIT/1 ML VIAL SUB-Q SCH ×2 (10:00)
[2019-10-14] MEDS ORDERED: FAMOTIDINE 20 MG TAB PO SCH (10:00)
[2019-10-14] MEDS ORDERED: FAMOTIDINE 10 MG TAB PO SCH (10:00)
--- NOTE | 2019-10-14 10:23 | Magnetic Resonance Report ---
MRI BRAIN WITHOUT CONTRAST INDICATION / CLINICAL INFORMATION: MAIN: TIA, confusion. TECHNIQUE: Multiplanar, multisequence MR images of the brain were obtained. COMPARISON: None available. FINDINGS: BRAIN / INTRACRANIAL CONTENTS: There are scattered hyperintense foci involving the cerebral white mat ter on the FLAIR sequence most consistent with microvascular angiopathy at. There are old lacunar inf arcts involving the left guerra radiata and right thalamus at. The diffusion imaging reveals no evide nce of acute infarction. There is moderate cerebral atrophy with associated prominence of the ventricular system. No extra-axi al fluid collections or significant mass effect is identified at. CRANIOCERVICAL JUNCTION: No significant abnormality. 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 Otherwise, the vascular structures grossly demonstrate appropriate signal v oids. ORBITS: No significant abnormality of visualized orbits. SINUSES / MASTOIDS: There is mild mucosal thickening within the right ethmoid air cells. ADDITIONAL FINDINGS: None. IMPRESSION: 1. 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 Signer Name: Eron Fuller MD Signed: 10/14/2019 10:19 AM Workstation Name: [id number]
--- NOTE | 2019-10-14 12:15 | Vascular Lab Report ---
"DUPLEX DOPPLER ULTRASOUND CAROTID, BILATERAL INDICATION: TIA. COMPARISON: None available. FINDINGS: RIGHT CAROTID: Moderate plaque of the carotid bulb and proximal ICA. CCA velocity: 102 cm/sec. ICA peak systolic velocity: 82 cm/sec. ICA/CCA PSV Ratio: 0.8. Right Vertebral Artery: Antegrade flow. LEFT CAROTID: No significant atherosclerotic plaque. CCA velocity: 76 cm/sec. ICA peak systolic velocity: 62 cm/sec. ICA/CCA PSV Ratio: 0.8. Left Vertebral Artery: Antegrade flow. IMPRESSION: 1. Right Internal Carotid Artery: Less than 50% diameter stenosis. 2. Left Internal Carotid Artery: Less than 50% diameter stenosis. Velocity criteria are extrapolated from diameter data as defined by the Society of Radiologists in Ul trasound Consensus Conference, Radiology 2003; 229;340-346. Degree of || ICA PSV || Plaque || ICA/CCA Stenosis (%) || (cm/sec) || estimate (%) || PSV Ratio - Normal...............<125..............None.................<2.0 - <50....................<125..............<50....................<2.0 - 50-69................125-230.........>50....................2.0-4.0 - >70 but <100....>230..............>50....................>4.0 - Near...................High, low, .....visible................variable occlusion or none - Total...................None.............visible;................N/A occlusion no lumen Signer Name: Momo Jean Baptiste MD Signed: 10/14/2019 12:11 PM Workstation Name: [id number]"
--- NOTE | 2019-10-14 14:04 | Discharge Summary ---
Providers - Providers Date of Admission: 10/13/19 18:45 Date of discharge: 10/14/19 Attending physician: MICHELLE BARR MD 10/14/19 07:21 Consult to Physician [CONS] Routine Comment: Consulting Provider: CELESTINO GARAY Physician Instructions: Reason For Exam: TIA 10/14/19 08:34 Occupational Therapy Evaluate and Treat [CONS] Routine Comment: Reason For Exam: TIA Physical Therapy Evaluation and Treat [CONS] Routine Comment: Reason For Exam: TIA Primary care physician: [facility]ENDOR Hospitalization Reason for admission: TIA Condition: Fair Pertinent studies: MRI head, echo and carotid Doppler were negative Hospital course: 89-year-old female presenting with a chief complaint of confusion. The patient states that she went to the [employer] today to pay a bill. The patient states while at the counter she had difficulty focusing and was unable to write her check. The patient eventually completed her business and went home. The patient states she called her friend because she felt that "something was wrong." The friend in turn brought the patient to the emergency department. Patient denied ever having weakness, numbness or dysarthria. When asked how she is feeling currently the patient replies "I feel fine." Patient was admitted to the floor and patient did not have any neurologic deficit. Patient is doing well. Stroke work-up was done and negative. Patient states she is feeling well and asking to be discharged home. Patient was hemodynamically stable discharged home. Advised to have follow-up with her PCP. Appropriate medications were reconciled at the time of discharge. 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 The patient appeared well nourished and normally developed. Vital signs as documented. Head exam is unremarkable. No scleral icterus . Neck is without jugular venous distension, thyromegaly, or carotid bruits. Lungs are clear to auscultation. Cardiac exam reveals regular rate and Rhythm. Abdominal exam reveals normal bowel sounds, nontender, no organomegaly. Extremities are nonedematous and both femoral and pedal pulses are normal. 4 H YOUTH DEVELOPMENT SPECIALIST: Alert and oriented 3. No focal weakness. - Constitutional Vitals: Temp Pulse Resp BP Pulse Ox 97.6 F 112 H 20 155/67 95 10/14/19 12:31 10/14/19 12:31 10/14/19 12:31 10/14/19 12:31 10/14/19 12:31 Plan Activity: no restrictions Weight Bearing Status: Full Weight Bearing Diet: low cholesterol, diabetic Follow up with: PRIMARY CAREMD [Primary Care Provider] - 3-5 Days GABRIEL CHONG MD [Staff Physician] - 14 Days
[2019-10-14 16:09] VITALS: BP 139/87
--- NOTE | 2019-10-14 16:26 | Magnetic Resonance Report ---
MRA HEAD 10/14/2019 INDICATION / CLINICAL INFORMATION: MAIN: tia, CONFUSION. TECHNIQUE: Routine MRA of the head is performed. 3-D/MIP reformats postprocessed. COMPARISON: None available. FINDINGS: MRA HEAD: Intracranial internal carotid arteries: No significant abnormality. Anterior cerebral arteries: No significant abnormality. Middle cerebral arteries: There is some signal loss along the branches of the left middle cerebral ar js, which based on the source images is believed to be artifactual. Intracranial vertebral arteries: No significant abnormality. Basilar artery: No significant abnormality. Posterior cerebral arteries: There is some irregularity seen along the course of the right posterior cerebral artery, consistent with atherosclerotic stenosis. Signer Name: Roger Singleton MD Signed: 10/14/2019 4:22 PM Workstation Name: [id number]
--- NOTE | 2019-10-14 18:02 | Event Note ---
Date: 10/14/19 Was consulted to see patient for possible TIA. Patient was discharged home prior to being able to see the patient. Of note, MRI did not show any evidence of infarct. Carotid ultrasound did not show any significant stenosis. MRA head did not show any significant stenosis. According to chart review, differential was TIA versus hypertensive urgency, as patient was found to have blood pressure elevated at 242/117 on admission. Given that patient had resolved during the course of admission, would recommend for patient to follow-up outpatient with neurology.
== END 2019-10-14 15:45 | disposition home or self-care (01) ==
LOC: ED 17:39 → INTOOBSV 18:45 → 4A 18:45
PROVIDERS: ADMIT Internal Medicine; ATTEND Internal Medicine
DX: R41.0 Disorientation, unspecified (principal); G45.9 Transient cerebral ischemic attack, unspecified; I16.0 Hypertensive urgency; M19.90 Unspecified osteoarthritis, unspecified site; E11.9 Type 2 diabetes mellitus without complications; E87.6 Hypokalemia; Z87.891 Personal history of nicotine dependence; Z79.82 Long term (current) use of aspirin; Z79.84 Long term (current) use of oral hypoglycemic drugs
CPT/HCPCS: 36415; 70450; 70544; 70551; 80048; 82962; 83036; 84484; 85007; 85025; 85610; 85670; 85730; 93005; 93010; 93306; 93880; 96372; 96374; 97161; 99285; A9270; G0378; J1644